=== PATIENT | female | born 1955 | race Caucasian/White ===

== ENCOUNTER → 2019-06-16 12:08 | Outpatient (CLI) | payer OTHER, BC, SELFPAY ==
--- NOTE | 2019-06-16 12:10 | DI.MG.S_ITS ---
BILATERAL DIGITAL SCREENING MAMMOGRAM 3D/2D WITH CAD: 06/16/2019 CLINICAL: Routine screening. Comparison is made to exams dated: 12/16/2017 mammogram, 11/02/2016 mammogram, and 08/26/2012 mammogram - [facility]. The tissue of both breasts is predominantly fatty. Current study was also evaluated with a Computer Aided Detection (CAD) system. There is a 6 mm irregular asymmetry in the left breast anterior depth medial region seen on the craniocaudal view only. This is increased in size. No other significant masses, calcifications, or other findings are seen in either breast. IMPRESSION: INCOMPLETE: NEEDS ADDITIONAL IMAGING EVALUATION The 6 mm irregular asymmetry in the left breast is indeterminate. Additional views with possible ultrasound are recommended. This exam was interpreted at Station ID: [id number]. NOTE: For mammograms, a report in lay terms will be sent to the patient. Approximately 15% of breast malignancies will not be visualized mammographically. In the management of a palpable breast mass, a negative mammogram must not discourage biopsy of a clinically suspicious lesion. Electronically Signed By: Fernanda chinchilla/jhoan:06/16/2019 13:49:56 letter sent: Additional Imaging Needed ACR BI-RADS Category 0: Incomplete 3340F
== END ==
PROVIDERS: PCP Internal Medicine; Visit Provider Obstetrics & Gynecology
DX: Z12.31 Encounter for screening mammogram for malignant neoplasm of breast (principal)
CPT/HCPCS: 77063; 77067

== ENCOUNTER → 2019-06-29 12:24 | Outpatient (CLI) | payer OTHER, BC, SELFPAY ==
--- NOTE | 2019-06-29 12:26 | DI.US.S_ITS ---
LIMITED ULTRASOUND OF LEFT BREAST: 06/29/2019 CLINICAL: Additional evaluation requested from prior study. Comparison is made to exams dated: 06/29/2019 mammogram, 06/16/2019 mammogram, 12/16/2017 mammogram, 11/02/2016 mammogram, 08/26/2012 mammogram, and 08/26/2011 mammogram - [facility]. Color flow and real-time ultrasound of the left breast 7 o'clock region were performed on the areas of interest. There is a 0.5 cm x 0.4 cm x 0.4 cm oval cyst in the left breast at 7 o'clock anterior depth. This oval cyst is hypoechoic with internal echoes and posterior acoustic enhancement. This correlates with mammography findings. Color flow imaging demonstrates that there is no vascularity present. IMPRESSION: PROBABLY BENIGN The 0.5 cm x 0.4 cm x 0.4 cm oval cyst in the left breast is consistent with a complicated cyst and is probably benign. Follow-up mammogram and ultrasound in 6 months is recommended. A follow-up mammogram and an ultrasound in 6 months is recommended to demonstrate stability. This exam was interpreted at Station ID: [id number]. Electronically Signed By: Robin garces/jhoan:06/30/2019 17:58:11 letter sent: Followup Recommended Ultrasound BI-RADS: 3 Probably benign
--- NOTE | 2019-06-29 12:26 | DI.MG.S_ITS ---
UNILATERAL LEFT DIGITAL DIAGNOSTIC MAMMOGRAM 3D/2D WITH ADDITIONAL VIEWS: 06/29/2019 CLINICAL: Additional evaluation requested from prior study. Comparison is made to exams dated: 06/16/2019 mammogram, 12/16/2017 mammogram, and 11/02/2016 mammogram - [facility]. There are scattered fibroglandular elements in left breast. There is a 0.7 cm oval low density focal asymmetry with an indistinct and circumscribed margin in the left breast at 7 o'clock anterior depth. No other significant masses or calcifications are seen in the breast. IMPRESSION: INCOMPLETE: NEEDS ADDITIONAL IMAGING EVALUATION The 0.7 cm oval low density focal asymmetry in the left breast is indeterminate. An ultrasound is recommended. This exam was interpreted at Station ID: [id number]. NOTE: For mammograms, a report in lay terms will be sent to the patient. Approximately 15% of breast malignancies will not be visualized mammographically. In the management of a palpable breast mass, a negative mammogram must not discourage biopsy of a clinically suspicious lesion. Electronically Signed By: Robin garces/jhoan:06/29/2019 13:20:05 ACR BI-RADS Category 0: Incomplete 3340F
== END ==
PROVIDERS: PCP Internal Medicine; Visit Provider Obstetrics & Gynecology
DX: R92.8 Other abnormal and inconclusive findings on diagnostic imaging of breast (principal); N60.02 Solitary cyst of left breast
CPT/HCPCS: 76642; 77065; G0279

== ENCOUNTER → 2019-08-02 16:21 | Outpatient (CLI) | payer OTHER, BC, SELFPAY ==
[2019-08-02 17:22] LABS: Cancer Antigen 125 9 U/mL (0-35)
== END ==
PROVIDERS: Family Provider Internal Medicine; PCP Internal Medicine; Visit Provider Obstetrics & Gynecology
DX: R14.0 Abdominal distension (gaseous) (principal)
CPT/HCPCS: 36415; 86304

== ENCOUNTER → 2020-02-21 12:58 | Outpatient (CLI) | payer OTHER, BC, MEDICARE, SELFPAY | PROVIDERS: Family Provider Internal Medicine; PCP Internal Medicine; Referring Provider Obstetrics & Gynecology; Visit Provider Obstetrics & Gynecology | DX: R92.8 Other abnormal and inconclusive findings on diagnostic imaging of breast (principal); N64.89 Other specified disorders of breast ==

== ENCOUNTER → 2020-02-26 11:08 | Outpatient (CLI) | payer OTHER, BC, MEDICARE, SELFPAY ==
--- NOTE | 2020-02-26 | DI.MG.S_ITS ---
UNILATERAL LEFT DIGITAL DIAGNOSTIC MAMMOGRAM 3D/2D SHORT-TERM FOLLOW-UP: 02/26/2020 CLINICAL: Patient returns for a 6 month follow up of the left breast. Comparison is made to exams dated: 06/29/2019 mammogram, 06/16/2019 mammogram, and 12/16/2017 mammogram - [facility]. There are scattered fibroglandular elements in left breast. There is an oval low density asymmetry with an indistinct margin in the left breast anterior depth medial region seen on the craniocaudal view only. This is not significantly changed. No other significant masses or calcifications are seen in the breast. IMPRESSION: INCOMPLETE: NEEDS ADDITIONAL IMAGING EVALUATION The oval low density asymmetry in the left breast is indeterminate. An ultrasound is recommended. This exam was interpreted at Station ID: [id number]. NOTE: For mammograms, a report in lay terms will be sent to the patient. Approximately 15% of breast malignancies will not be visualized mammographically. In the management of a palpable breast mass, a negative mammogram must not discourage biopsy of a clinically suspicious lesion. Electronically Signed By: Robin garces/jhoan:02/26/2020 11:46:32 ACR BI-RADS Category 0: Incomplete 3340F
--- NOTE | 2020-02-26 | DI.US.S_ITS ---
LIMITED ULTRASOUND OF LEFT BREAST AND AXILLA: 02/26/2020 CLINICAL: 6 month follow-up of cysts. Comparison is made to exams dated: 02/26/2020 mammogram, 06/29/2019 ultrasound, 06/29/2019 mammogram, 06/16/2019 mammogram, 12/16/2017 mammogram, and 11/02/2016 mammogram - [facility]. Color flow and real-time ultrasound of the left breast 7 o'clock, and axilla regions were performed on the areas of interest. There is a 0.3 cm x 0.3 cm x 0.3 cm oval mass with indistinct margins in the left breast at 7 o'clock anterior depth. This oval mass is hypoechoic with posterior acoustic shadowing. This abnormality is more prominent and may correlate with mammography findings. Color flow imaging demonstrates that there is adjacent vascularity. No suspicious enlarged lymph nodes were seen sonographically in the left axilla. IMPRESSION: SUSPICIOUS OF MALIGNANCY The 0.3 cm x 0.3 cm x 0.3 cm oval mass in the left breast is suspicious of malignancy. An ultrasound guided biopsy is recommended. The findings were discussed with the patient at the conclusion of the study by Dr. De La O. This exam was interpreted at Station ID: [id number]. Electronically Signed By: Robin garces/:02/26/2020 16:10:58 letter sent: Biopsy Required Ultrasound BI-RADS: 4 Suspicious for malignancy
== END ==
PROVIDERS: Family Provider Internal Medicine; PCP Internal Medicine; Referring Provider Obstetrics & Gynecology; Visit Provider Obstetrics & Gynecology
DX: R92.8 Other abnormal and inconclusive findings on diagnostic imaging of breast (principal); N63.24 Unspecified lump in the left breast, lower inner quadrant
CPT/HCPCS: 76642; 77065; G0279

== ENCOUNTER → 2020-03-15 08:57 | Outpatient (CLI) | payer OTHER, BC, MEDICARE, SELFPAY ==
--- NOTE | 2020-03-15 | DI.MG.S_ITS ---
UNILATERAL LEFT DIGITAL DIAGNOSTIC MAMMOGRAM POST-NEEDLE BIOPSY: 03/15/2020 CLINICAL: Left breast mass. Comparison is made to exams dated: 06/29/2019 mammogram, 06/16/2019 mammogram, and 12/16/2017 mammogram - [facility]. There are scattered fibroglandular elements in left breast. There is a marker clip in the appropriate position in the left breast at 7 o'clock anterior depth. This marker clip placement is at the biopsy site. IMPRESSION: POST PROCEDURE MAMMOGRAM FOR MARKER PLACEMENT There was a successful marker clip placement in the left breast anterior depth. This exam was interpreted at Station ID: [id number]. NOTE: For mammograms, a report in lay terms will be sent to the patient. Approximately 15% of breast malignancies will not be visualized mammographically. In the management of a palpable breast mass, a negative mammogram must not discourage biopsy of a clinically suspicious lesion. Electronically Signed By: Bay escalante/:03/15/2020 14:07:00 ACR BI-RADS Category Post-procedure mammogram for marker placement
--- NOTE | 2020-03-15 | PATH_ITS ---
[facility] Accession Number: [id number] . 01 Material submitted: . breast - LEFT BREAST MASS 7:00 2 CM FN . 01 Clinical history: . LEFT BREAST MASS . 02 Diagnosis: Left Breast, Mass At 7 O'Clock, 2 CM FN, Core Needle Biopsy: No evidence of atypical hyperplasia, in-situ, or invasive carcinoma. Dense fibrous tissue with duct ectasia. Hemosiderin-laden macrophages present suggestive of prior/remote injury. [facility] 03/19/2020 1507 Local . 02 Electronically signed: . Rita Francisco MD, Pathologist NPI- [id number] . 01 Gross description: . Received in formalin, labeled with the patient's name and left breast mass 7 o'clock 2 cm FN, is a filter container with five cores of yellow-delong, fibrofatty breast tissue, 0.5-1.5 cm in length, 0.3 cm in diameter, with a 1.5 x 1.0 x 0.2 cm aggregate of multiple irregular fragments of fibrofatty tissue in the container. The specimen is entirely submitted. Summary of sections: A1. Three cores. A2. Two cores. A3. Remaining aggregate fragments. Please note that no formalin time is indicated on the requisition or container. ([id number]) /FRTj 03/16/2020 1437 Local . 02 Pathologist provided ICD-10: N63.0 . 02 CPT . 994631 Performed at: 01 [facility] [address] [facility], [place], [place] [id number] MD Robin Wall MD Phone: [phone] Performed at: 02 [facility] [place] [address] [place] [id number] MD Rita Francisco MD Phone: [phone]
--- NOTE | 2020-03-15 09:00 | DI.US.S_ITS ---
ULTRASOUND GUIDED BIOPSY LEFT BREAST USING VACUUM DEVICE WITH MARKING DEVICE INSERTED: 03/15/2020 CLINICAL: Left breast mass. PATIENT CONSENT: Risks (minor bleeding, infection, vasovagal reaction and repeat procedure), benefits and alternatives were explained to the patient and written informed consent was obtained. Correlation is made to exams dated: 02/26/2020 ultrasound, 02/26/2020 mammogram, 06/29/2019 ultrasound, 06/29/2019 mammogram, 06/16/2019 mammogram, and 12/16/2017 mammogram - [facility]. An ultrasound guided biopsy using real-time ultrasound was performed for the irregular shaped mass located in the left breast at 7 o'clock .The skin was prepped in the usual manner. Local anesthetic was administered to the access site. A small incision was made in the breast. The abnormality was approached from the lateral aspect. A biopsy needle was placed adjacent to the abnormality under ultrasound guidance. Once the needle was documented to be in the correct location, three specimens were obtained using the Mammotome biopsy system. A clip was inserted into the biopsy cavity. The specimens were sent to the laboratory for pathological analysis. IMPRESSION: ULTRASOUND GUIDED BIOPSY BENIGN Ultrasound guided biopsy of the mass in the left breast at 7 o'clock posterior depth was successful. Pathology indicates dense breast tissue with benign ductal ectasia and hemosiderin laden macrophages consistent with prior/remote trauma. Pathology results are concordant with imaging findings. Return to annual mammogram screening schedule is recommended. This exam was interpreted at Station ID: [id number]. Bay escalante,aty/:03/21/2020 10:00:56
== END ==
PROVIDERS: Family Provider Internal Medicine; PCP Internal Medicine; Referring Provider Specialist; Visit Provider Specialist
DX: N60.42 Mammary duct ectasia of left breast (principal); N64.89 Other specified disorders of breast
CPT/HCPCS: 19083; 77065

== ENCOUNTER → 2020-09-18 12:23 | Outpatient (CLI) | payer OTHER, BC, MEDICARE, SELFPAY ==
--- NOTE | 2020-09-18 | DI.MG.S_ITS ---
BILATERAL DIGITAL SCREENING MAMMOGRAM 3D/2D WITH CAD: 09/18/2020 CLINICAL: Routine screening. Comparison is made to exams dated: 03/15/2020 mammogram, 02/26/2020 mammogram, 06/29/2019 mammogram, 06/16/2019 mammogram, and 12/16/2017 mammogram - [facility]. There are scattered fibroglandular elements in both breasts. Current study was also evaluated with a Computer Aided Detection (CAD) system. No significant masses, calcifications, or other findings are seen in either breast. There has been no significant interval change. IMPRESSION: NEGATIVE There is no mammographic evidence of malignancy. A 1 year screening mammogram is recommended. This exam was interpreted at Station ID: [id number]. NOTE: For mammograms, a report in lay terms will be sent to the patient. Approximately 15% of breast malignancies will not be visualized mammographically. In the management of a palpable breast mass, a negative mammogram must not discourage biopsy of a clinically suspicious lesion. Electronically Signed By: Marcus Little M.D., jr/jhoan:09/18/2020 13:06:07 letter sent: Normal Exam ACR BI-RADS Category 1: Negative 3341F
== END ==
PROVIDERS: Family Provider Internal Medicine; PCP Internal Medicine; Referring Provider Obstetrics & Gynecology; Visit Provider Obstetrics & Gynecology
DX: Z12.31 Encounter for screening mammogram for malignant neoplasm of breast (principal)
CPT/HCPCS: 77063; 77067

== ENCOUNTER → 2020-10-29 14:29 | Outpatient (CLI) | payer OTHER, BC, MEDICARE, SELFPAY ==
[2020-10-29 15:27] LABS: HEMOLYSIS < 15 (0-50); Iron 124 ug/dL (37-170)
[2020-10-29 15:29] LABS: Alanine Aminotransferase 18 IU/L (<35); Albumin 4.4 g/dL (3.5-5.0); Albumin Globulin Ratio 1.5 (1.0-2.8); Alkaline Phosphatase 54 U/L (38-126); Aspartate Aminotransferase 27 IU/L (14-36); Bilirubin Total 0.6 mg/dL (0.2-1.3); Blood Urea Nitrogen 13 mg/dL (7-17); Calcium 9.5 mg/dL (8.4-10.2); Carbon Dioxide 29 mmol/L (22-32); Chloride 103 mmol/L (98-107); Cholesterol 258 mg/dL (140-199); Estimated Glomerular Filt Rate > 60.0 mL/min (>60); Globulin 2.9 g/dL (1.7-4.1); Glucose 96 mg/dL (80-110); HDL Cholesterol 82 mg/dL (40-60); HEMOLYSIS < 15 (0-50); LDL Cholesterol Calculated 157 mg/dL (<100); Potassium 4.1 mmol/L (3.4-5.1); Sodium 137 mmol/L (137-145); Total Protein 7.3 g/dL (6.3-8.2); Triglycerides 94 mg/dL (35-150)
[2020-10-29 15:44] LABS: Percent Iron Saturation 40 % (15-50); Total Iron Binding Capacity 308 ug/dL (265-497); Transferrin 238 mg/dL (206-381)
[2020-10-29 15:45] LABS: Free T4, Direct Thyroxine 0.86 ng/dL (0.78-2.19)
[2020-10-29 15:59] LABS: Thyroid Stimulating Hormone 0.602 uIU/mL (0.47-4.68)
[2020-11-02 08:08] LABS: Percent Free Testosterone 2.09 % (0.50-2.80); Testosterone Free 0.54 ng/dL (0.10-0.85)
== END ==
PROVIDERS: Family Provider Internal Medicine; PCP Internal Medicine; Referring Provider Obstetrics & Gynecology; Visit Provider Obstetrics & Gynecology
DX: L65.9 Nonscarring hair loss, unspecified (principal)
CPT/HCPCS: 36415; 80053; 80061; 83540; 83550; 84402; 84403; 84439; 84443

== ENCOUNTER → 2021-07-30 10:38 | Outpatient (CLI) | payer BC, MEDICARE, SELFPAY ==
[2021-07-30 17:14] LABS: COVID19 -Nasal RAPID Negative (Negative)
== END ==
PROVIDERS: Family Provider Internal Medicine; PCP Internal Medicine; Visit Provider Obstetrics & Gynecology
DX: Z20.822 Contact with and (suspected) exposure to COVID-19 (principal); Z01.812 Encounter for preprocedural laboratory examination
CPT/HCPCS: 87635; C9803

== ENCOUNTER 2021-07-31 08:16 | Day surgery (SDC) | payer BC, MEDICARE, SELFPAY ==
[2021-07-23 10:13] VITALS: BMI 24.4
[2021-07-31] VITALS (7 sets, daily range): BP systolic 109–159; BP diastolic 41–77; PULSE 66–77; RESP 12–18; TEMP 36.1–36.5; O2SAT 98–100; BMI 24.4
--- NOTE | 2021-07-31 | PATH_ITS ---
[facility] Accession Number: [id number] . 01 Material submitted: . endometrium - ENDOMETRIAL CURETTINGS . 02 Diagnosis: Endometrial Curettings: Very scant fragments of endometrial tissue and scant strips of endometrial glandular epithelium; please see comment. Scant, avulsed squames with reactive features; negative for squamous dysplasia or malignancy. [facility]V 08/04/2021 0933 Local . 02 Comment: Due to the scant nature of this biopsy, it may not be entirely fundraising sale representative of this patient's endometrium; additional sampling could be considered, if clinically appropriate. . There is no evidence of glandular hyperplasia, cytologic atypia, or malignancy in these very scant tissue fragments. . 02 Electronically signed: . Spring Archibald MD, Pathologist NPI- [id number] . 01 Gross description: . ENDOMETRIAL CURETTINGS: Received in formalin is 1 fragment(s) of delong, soft tissue measuring 0.3 x 0.1 x 0.1 cm in aggregate submitted entirely in 1 cassette(s) /ASCENCION 08/01/2021 0341 Local . 02 Pathologist provided ICD-10: N95.0 . 02 CPT . 866290 Performed at: 01 [facility] [address], [place], [place] [id number] MD Robin Wall MD Phone: [phone] Performed at: 02 [facility] [place] [address] [place], [place] [id number] MD Rita Francisco MD Phone: [phone]
[2021-07-31] MEDS: LACTATED RINGERS 1,000 ML 100 ML IV (09:41)
--- NOTE | 2021-07-31 10:22 | PM.HP.1 ---
History of Present Illness History of Present Illness Date Patient Seen: 07/31/21 Time Patient Seen: 10:23 Chief complaint: SDC Narrative: Patient is a 66-year-old 1 para 1 with persistent postmenopausal bleeding. She presents for a D&C hysteroscopy with NovaSure endometrial ablation. Negative endometrial biopsy. Patient History Medical History (Updated 07/24/21 @ 08:48 by Asiya Mendosa MD) Depression Former smoker History of endometrial biopsy (2010) Migraines Osteopenia (06/05/10) PMB (postmenopausal bleeding) Seizure Subdural hematoma (05/27/17) Surgical History (Updated 06/20/18 @ 13:18 by Kristi Nicole) History of carpal tunnel repair (03/07/12) History of craniotomy (2016) Family & Social History Social History: household members spouse Tobacco & Substance use: Smoking Status Former smoker alcohol intake current alcohol intake frequency holiday/special occasion Substance Use Type does not use Meds Home Medications and Allergies Home Medications Medication Instructions Recorded Confirmed Type VITAMIN B COMPLEX (SUPER B COMPLEX) 1 cap PO DAILY #0 03/07/12 07/31/21 History diphenhydramine HCl 25 mg tablet 25 mg PO PRN PRN #0 11/03/16 07/31/21 History (Benadryl Allergy) ascorbic acid (vitamin C) 500 mg 500 mg PO QDAY #0 06/09/17 07/31/21 History tablet albuterol sulfate 90 mcg/actuation 1 puff INHALATION QID #1 ea 02/07/19 07/31/21 Rx aerosol inhaler (Ventolin HFA) estradiol 1 mg tablet 1 mg PO DAILY #30 tab 02/10/21 07/31/21 Rx medroxyprogesterone 5 mg tablet See Rx Instructions .ROUTE 02/10/21 07/31/21 Rx .COMPLEX #90 tab sertraline 25 mg tablet 25 mg PO DAILY #30 tab 02/10/21 07/31/21 Rx CMP Testosterone gel 0.2% See Rx Instructions .ROUTE 06/26/21 07/31/21 Rx .COMPLEX #30 g Allergies Allergy/AdvReac Type Severity Reaction Status Date / Time codeine Allergy Unknown Verified 07/31/21 09:23 fentanyl [FENTANYL] Allergy Unknown Hallucinati Verified 07/31/21 09:23 ons Exam Vital Signs (past 8 hours): - 07/31/21 09:32 Temperature 96.9 F L Pulse Rate 69 Respiratory Rate 16 Blood Pressure 159/77 H Pulse Oximetry 100 Oxygen Delivery Method Room Air Narrative Exam Narrative: HEENT: No thyromegaly, no anterior cervical or supraclavicular lymphadenopathy. Lungs:Clear to auscultation bilaterally, no wheezes. Cardiovascular: Regular rate and rhythm, no murmurs, rubs, or gallops. Abdomen: No scars. No hepatosplenomegaly. No masses palpable. External genitalia: Normal Vagina: Normal Cervix: Normal Bimanual exam: 6 Week size anteverted uterus. Mobile. Assessment & Plan Assessment & Plan narrative: Assessment: 66-year-old 1 para 1 with persistent postmenopausal bleeding, and a negative endometrial biopsy. Plan: D&C hysteroscopy with NovaSure endometrial ablation. The risks, benefits, and alternatives to the procedure were explained to the patient. The risks including bleeding, infection, or uterine perforation. She understands these risks and agrees to proceed. A full par Q was held and consent form was signed. COVID-19 COVID-19 status: Negative Result date/Date tested (Pos, Neg/Pending): 07/30/21 Time Spent With Patient Time with patient: less than 30 minutes Critical Care time: I spent a total of [] minutes of critical care time on this patient's care today; this time is exclusive of procedural time.
--- NOTE | 2021-07-31 10:25 | PM.PREOP ---
Pre-operative Note COVID-19 COVID-19 status: Negative Result date/Date tested (Pos, Neg/Pending): 07/30/21 Interval Note History & Physical reviewed/Exam performed by Physician: Yes Changes to H&P: No H&P completed within 30 days and has changed as indicated here:: 07/31/21
--- NOTE | 2021-07-31 10:54 | SUR.OPER ---
Lithotomy on padded OR bed, head on pillow, arms secured on padded arm boards at <90 degrees abduction. Legs secured in padded yellow fins stirrups.
--- NOTE | 2021-07-31 11:26 | PM.GYNOP.1 ---
Operative Date/Time/Diagnoses Date of procedure: 07/31/21 Time of procedure: 11:26 Pre-op diagnosis: Persistent postmenopausal bleeding Post-op diagnosis: same Procedure & Clinicians Procedure: Procedures Operation Date: 07/31/21 09:45 Actual Procedure Side Surgeon p Hysteroscopy D&C, ATTEMPTED NOVASURE, ENDOMETRIAL ABLATION WITH ROLLERBALL Not Applicable Asiya Mendosa MD Indications: Persistent postmenopausal bleeding Surgeon: Asiya Mendosa Anesthesia Type: General (LMA) Operative Notes Findings: 4-5 week size anteverted uterus Both fallopian tube ostia observed Thin endometrial lining Closure Type: not applicable Specimen(s): endometrial curettings Estimated blood loss (mL): 2 Blood products transfused: none Procedure in detail: After informed consent was obtained, the patient was taken to the operating room where she was placed in the dorsal supine position. After adequate LMA general anesthesia was achieved, she was placed in the dorsal lithotomy position, and prepped and draped in the usual sterile fashion. A time-out was performed. A bivalve speculum was placed into the vagina and the anterior lip of the cervix was grasped with a single-tooth tenaculum. The cervical os was sequentially dilated to the # 8 Hegar dilator. The hysteroscope passed easily into the endometrial cavity. Both fallopian tube ostia were observed. There was thin endometrial lining. The hysteroscope was removed. Sharp curettage was performed yielding minimal amount of endometrial curettings. The cervix was measured from the internal os to the fundus and was at 4 cm. This was set on the NovaSure catheter and the generator. The NovaSure catheter passed into the endometrial cavity. Upon opening it was only 1.5 cm. The cavity assessment could not be performed due to low volume inside the uterus. The NovaSure catheter was closed and removed from the uterus. The cervix was further dilated to the # 10 Hegar dilator. The resectoscope was placed into the endometrial cavity. Rollerball endometrial ablation was performed with settings at 60 cautery. The endometrium was cauterized circumferentially at the completion of the case. The instruments were removed from the uterus. The single-tooth tenaculum was removed from the anterior lip of the cervix. There was a small tear in the anterior cervix. A [id number] suture with 2 0 chromic was placed for hemostasis. Sponge, lap, and instrument counts were correct x2. The patient tolerated the procedure well, and was taken to PACU in stable condition. Complications: none Post-operative Condition: stable Disposition: PACU Plan for aftercare: Home after recovery
[2021-07-31] MEDS: ACETAMINOPHEN 325 MG TABLET 650 MG PO (11:33)
== END 2021-07-31 12:20 | disposition home or self-care (01) ==
PROVIDERS: Family Provider Internal Medicine; PCP Internal Medicine; Referring Provider Obstetrics & Gynecology; Visit Provider Obstetrics & Gynecology
PROC: 0U5B8ZZ Destruction of Endometrium, Via Natural or Artificial Opening Endoscopic (ICD-10-PCS; CPT 58563; principal; 2021-07-31 09:45)
DX: N95.0 Postmenopausal bleeding (principal); F32.9 Major depressive disorder, single episode, unspecified; G43.909 Migraine, unspecified, not intractable, without status migrainosus; M85.80 Other specified disorders of bone density and structure, unspecified site
CPT/HCPCS: 58563; J1100; J1885; J2405; J2704; J3010

== ENCOUNTER → 2021-09-22 11:24 | Outpatient (CLI) | payer BC, MEDICARE, SELFPAY ==
--- NOTE | 2021-09-22 11:27 | DI.MG.S_ITS ---
BILATERAL DIGITAL SCREENING MAMMOGRAM 3D/2D WITH CAD: 09/22/2021 Comparison is made to exams dated: 09/18/2020 mammogram, 03/15/2020 mammogram, 06/29/2019 mammogram, 06/16/2019 mammogram, 08/26/2011 mammogram, and 08/26/2012 mammogram - [facility]. There are scattered fibroglandular elements in both breasts. Current study was also evaluated with a Computer Aided Detection (CAD) system. There is a biopsy clip in the left breast. No significant masses, calcifications, or other findings are seen in either breast. There has been no significant interval change. IMPRESSION: NEGATIVE There is no mammographic evidence of malignancy. A 1 year screening mammogram is recommended. This exam was interpreted at Station ID: [id number]. NOTE: For mammograms, a report in lay terms will be sent to the patient. Approximately 15% of breast malignancies will not be visualized mammographically. In the management of a palpable breast mass, a negative mammogram must not discourage biopsy of a clinically suspicious lesion. Electronically Signed By: Robin garces/jhoan:09/22/2021 12:16:53 letter sent: Normal Exam ACR BI-RADS Category 1: Negative [id number]
== END ==
PROVIDERS: Family Provider Internal Medicine; PCP Internal Medicine; Referring Provider Internal Medicine; Visit Provider Internal Medicine
DX: Z12.31 Encounter for screening mammogram for malignant neoplasm of breast (principal)
CPT/HCPCS: 77063; 77067

== ENCOUNTER 2021-11-11 21:38 | Emergency (ER) | payer BC, MEDICARE, SELFPAY ==
[2021-11-11 21:42] VITALS: BP 191/90; PULSE 76; RESP 16; TEMP 36.6; O2SAT 100
--- NOTE | 2021-11-11 22:04 | DI.RAD.S_ITS ---
PROCEDURE: XR CHEST 2V INDICATIONS: bilateral rib pain TECHNIQUE: 2 views of the chest were acquired. COMPARISON: [facility], , CHEST 1 VIEW, 05/27/2017, 15:45. FINDINGS: Surgical changes and devices: None. Lungs and pleura: Lungs are clear. No pleural effusions or pneumothorax. Mediastinum: Mediastinal contours are normal. Heart size is normal. Bones and chest wall: No suspicious bony abnormalities. Soft tissues appear unremarkable. IMPRESSION: No acute cardiopulmonary pathology. Dictated by: Rudolph Salguero M.D. on 11/11/2021 at 22:22 Approved by: Rudolph Salguero M.D. on 11/11/2021 at 22:22
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
--- NOTE | 2021-11-11 22:04 | DI.CT.S_ITS ---
PROCEDURE: CT HEAD/BRAIN WO CON INDICATIONS: fall , prior bleed TECHNIQUE: Noncontrast 4.5 mm thick angled axial sections acquired from the foramen magnum to the vertex, with coronal and sagittal reformats. For radiation dose reduction, the following was used: automated exposure control, adjustment of mA and/or kV according to patient size. COMPARISON: [facility], CT, HEAD WITHOUT CONTRAST, 07/20/2017, 12:26. FINDINGS: Image quality: Excellent. CSF spaces: Basal cisterns are patent. No extra-axial fluid collections. The ventricles are symmetric in size and shape. Brain: No acute intracranial bleeds or masses. Previously described trace amount of extra-axial fluid collection in right frontal lobe deep to the craniotomy site remains unchanged and is suggestive of a chronic process. There is cerebral volume loss for age, with resultant ventricular and sulcal prominence. There are periventricular and deep white matter chronic small vessel ischemic changes. There is intracranial internal carotid artery atherosclerosis. Skull and face: Prior right frontal parietal craniotomy is again seen. Calvarium and visualized facial bones appear intact, without suspicious lesions. Sinuses: Visualized sinuses and mastoids are clear. IMPRESSION: No significant changes from [address] evidence of acute intracranial bleed, midline shift or mass effect. Stable right frontal parietal craniotomy changes. Stable trace amount of extra-axial fluid in right frontal lobe deep to craniotomy site. Dictated by: Rudolph Salguero M.D. on 11/11/2021 at 22:30 Approved by: Rudolph Salguero M.D. on 11/11/2021 at 22:32
--- NOTE | 2021-11-11 22:04 | DI.CT.S_ITS ---
PROCEDURE: CT FACIAL BONES WO CON INDICATIONS: jaw problem.fall TECHNIQUE: Noncontrast 2.5 mm thick axial images acquired from the mandible through the frontal sinuses, with coronal and sagittal reformatting. For radiation dose reduction, the following was used: automated exposure control, adjustment of mA and/or kV according to patient size. COMPARISON: [facility], CT, FACIAL BONES WITHOUT CONTRAST, 05/27/2017, 15:58. FINDINGS: Image quality: Excellent. Bones and teeth: Orbital pan are intact. Sinus pan show no fracture or deformity. Nasal bones and septum are intact. Visualized portions of the mandible demonstrate no fractures or subluxation. Zygomatic arches are intact. Pterygoid plates are intact. Visualized portions of the skull base and auditory canals are intact. Sinuses: Paranasal sinuses are aerated, without fluid levels, mucosal thickening, or mucoceles. Mastoid air cells are aerated. Soft tissues: No edema, masses, or fluid collections. No enlarged lymph nodes. No soft tissue lacerations or debris. Vascular: Visualized vascular structures appear normal in the absence of contrast. Bony vascular foramina and canals are intact. IMPRESSION: 1. No acute facial bone or nasal bone fracture. Bilateral orbital pan and orbital globes are intact. 2. No gross facial soft tissue abnormality. Bilateral paranasal sinuses are well aerated. Dictated by: Rudolph Salguero M.D. on 11/11/2021 at 22:39 Approved by: Rudolph Salguero M.D. on 11/11/2021 at 22:41
[2021-11-11] MEDS: ACETAMINOPHEN 325 MG TABLET 975 MG PO (22:31)
[2021-11-11 23:15] VITALS: BP 162/77; PULSE 78; RESP 16; O2SAT 99
== END 2021-11-11 23:15 | disposition home or self-care (01) ==
PROVIDERS: Emergency Provider Emergency Medicine; Family Provider Internal Medicine; PCP Internal Medicine
DX: S09.90XA Unspecified injury of head, initial encounter (principal); Z87.891 Personal history of nicotine dependence; S20.219A Contusion of unspecified front wall of thorax, initial encounter; W19.XXXA Unspecified fall, initial encounter; Y93.89 Activity, other specified; Y92.89 Other specified places as the place of occurrence of the external cause
CPT/HCPCS: 70450; 70486; 71046; 99284

== ENCOUNTER → 2022-06-04 11:57 | Outpatient (CLI) | payer BC, MEDICARE, SELFPAY ==
[2022-06-04 13:23] LABS: Add Manual Diff / Slide Review NO; Basophils Absolute Auto 0 /uL (0-100); Basophils Percent Auto 0.3 % (0-2); Eosinophils Absolute Auto 0 /uL (0-450); Eosinophils Percent Auto 0.2 % (2-4); Hematocrit 38.6 % (36-46); Hemoglobin 13.3 g/dL (12.0-16.0); Lymphocytes Absolute Auto 1200 /uL (1100-4500); Lymphocytes Percent Auto 22.5 % (25-40); Mean Corpuscular HGB Conc 34.5 % (30-36); Mean Corpuscular Volume 98.3 fL (80-100); Monocytes Absolute Auto 300 /uL (0-900); Monocytes Percent Auto 6.1 % (3-14); Neutrophils Absolute Auto 3900 /uL (1500-7000); Neutrophils Percent Auto 70.9 % (50-75); Platelet Count 262 X10^3/uL (150-400); Red Blood Cell Count 3.93 X10^6/uL (4.0-5.2); Red Cell Distribution Width 13.3 % (11.6-14.8); White Blood Cell Count 5.5 X10^3/uL (4.5-11.0)
[2022-06-04 13:43] LABS: Alanine Aminotransferase 20 IU/L (<35); Albumin 4.4 g/dL (3.5-5.0); Albumin Globulin Ratio 1.6 (1.0-2.8); Alkaline Phosphatase 56 U/L (38-126); Aspartate Aminotransferase 27 IU/L (14-36); Bilirubin Total 0.5 mg/dL (0.2-1.3); Blood Urea Nitrogen 14 mg/dL (7-17); Carbon Dioxide 29 mmol/L (22-32); Chloride 103 mmol/L (98-107); Estimated Glomerular Filt Rate > 60 mL/min (>60); Globulin 2.8 g/dL (1.7-4.1); Glucose 94 mg/dL (80-110); HEMOLYSIS < 15 (0-50); Potassium 4.2 mmol/L (3.4-5.1); Sodium 137 mmol/L (137-145); Total Protein 7.2 g/dL (6.3-8.2)
[2022-06-04 15:28] LABS: Free T4, Direct Thyroxine 0.89 ng/dL (0.78-2.19)
[2022-06-04 15:42] LABS: Thyroid Stimulating Hormone 2.27 uIU/mL (0.47-4.68)
== END ==
PROVIDERS: Family Provider Internal Medicine; PCP Internal Medicine; Referring Provider Internal Medicine; Visit Provider Internal Medicine
DX: N95.1 Menopausal and female climacteric states (principal); R13.10 Dysphagia, unspecified; R63.4 Abnormal weight loss
CPT/HCPCS: 36415; 80053; 84439; 84443; 85025

== ENCOUNTER → 2023-05-04 09:36 | Outpatient (CLI) | payer BC, MEDICARE, SELFPAY ==
[2023-05-04 11:07] LABS: Alanine Aminotransferase 19 IU/L (<35); Albumin 4.1 g/dL (3.5-5.0); Albumin Globulin Ratio 1.5 (1.0-2.8); Alkaline Phosphatase 58 U/L (38-126); Aspartate Aminotransferase 24 IU/L (14-36); BUN Creatinine Ratio 21.9 (6-22); Bilirubin Total 0.7 mg/dL (0.2-1.3); Blood Urea Nitrogen 14 mg/dL (7-17); Calcium 9.2 mg/dL (8.4-10.2); Carbon Dioxide 29 mmol/L (22-32); Chloride 102 mmol/L (98-107); Cholesterol 223 mg/dL (140-199); Estimated Glomerular Filt Rate > 60 mL/min (>60); Globulin 2.7 g/dL (1.7-4.1); Glucose 99 mg/dL (80-110); HDL Cholesterol 86 mg/dL (40-60); HEMOLYSIS < 15 (0-50); LDL Cholesterol Calculated 116 mg/dL (<100); Potassium 4.7 mmol/L (3.4-5.1); Sodium 136 mmol/L (137-145); Total Protein 6.8 g/dL (6.3-8.2); Triglycerides 104 mg/dL (35-150)
== END ==
PROVIDERS: Family Provider Internal Medicine; PCP Internal Medicine; Referring Provider Internal Medicine; Visit Provider Internal Medicine
DX: Z13.6 Encounter for screening for cardiovascular disorders (principal); Z13.220 Encounter for screening for lipoid disorders
CPT/HCPCS: 36415; 80053; 80061

== ENCOUNTER → 2023-05-10 08:33 | Outpatient (CLI) | payer BC, MEDICARE, SELFPAY ==
--- NOTE | 2023-05-10 08:35 | DI.US.S_ITS ---
PROCEDURE: US CAROTID DOPPLER BI INDICATIONS: CALCIFICATION ON DENTAL X-RAY TECHNIQUE: Color and pulse Doppler interrogation was performed of both carotid systems, with image documentation and velocity measurements. COMPARISON: None. FINDINGS: Stenosis calculations are based on SRU (Society of Radiologists in Ultrasound) criteria. The flow velocities and the arterial waveforms are normal within both carotid arterial systems. Atherosclerotic plaque is seen on both sides. The estimated degree of internal carotid artery stenosis is less than 50%. Antegrade flow is confirmed within both vertebral arteries. IMPRESSION: No hemodynamically significant stenosis is seen. Atherosclerotic plaque is noted bilaterally. Dictated by: Rayshawn Figueroa M.D. on 05/10/2023 at 12:35 Approved by: Rayshawn Figueroa M.D. on 05/10/2023 at 12:35
== END ==
PROVIDERS: Family Provider Internal Medicine; PCP Internal Medicine; Referring Provider Internal Medicine; Visit Provider Internal Medicine
DX: I65.23 Occlusion and stenosis of bilateral carotid arteries (principal)
CPT/HCPCS: 93880

== ENCOUNTER 2024-09-19 11:30 | Outpatient (RCR) | payer BC, MEDICARE, SELFPAY ==
--- NOTE | 2024-06-20 16:00 | PT.OIE ---
Current Diagnoses Cystocele, unspecified (06/20/24) Pelvic muscle wasting (06/20/24) Nocturia (06/20/24) Urgency of urination (06/20/24) Past Medical History (Last Updated 02/18/24 @ 15:41 by Sj Gomez MD) Depression Former smoker History of endometrial biopsy (2010) Migraines Osteopenia (06/05/10) PMB (postmenopausal bleeding) Seizure Subdural hematoma (05/27/17) Past Surgical History (Last Reviewed 11/11/21 @ 22:17 by Courtney Morales DO) History of carpal tunnel repair (03/07/12) History of craniotomy (2017) Visit Care Team Role Provider Type Sj Gomez MD Family Provider Physician Primary Care Provider Specialty: Internal Medicine Address: [address] [place] [address], [address] [address] Email: [email or web address] Asiya Mendosa MD Attending Provider Physician Referring Provider Specialty: Gynecology DISTRIBUTION SPECIALIST Obstetrics Address: [address] [place] [address] [address] [place] [address], [facility] Email: [email or web address] Physical Therapy Initial Evaluation PT-OP-A Visit Information Start: 06/20/24 13:47 Freq: Status: Active Protocol: Document 06/20/24 17:06 [facility] (Rec: 06/20/24 17:08 [facility] [id number]) Out-Patient Physical Therapy Visit Information Visit Information Visit Type Initial Evaluation Visit Start Time 13:45 Visit Stop Time 14:30 Visit Number 1 Evaluation Information Evaluation Date 06/20/24 PT-OP-B Current Condition Start: 06/20/24 13:47 Freq: Status: Active Protocol: Document 06/20/24 13:45 [facility] (Rec: 06/20/24 14:38 [facility] [id number]) Current Condition History of Current Condition Onset Date worsening in the past couple of years Current Complaints pelvic heaviness and pressure, urinary urgency History of Current Condition Dannielle is referred to PT due to pelvic organ prolapse and urinary urgency. She notes the last couple of years its gotten worse she has a history of cystocele, uterine prolapse, and rectocele. She feels that she can empty all the way but does have urgency and she drinks a lot of water. Dannielle reports she can go 3- 4 days without a bowel movement. She is taking progesterone , estrogen, and testosterone cream. She does cycle throught the testosterone cream. She is walking daily. She seeks PT to help decrease the pelvic organ prolapse and pelvic heaviness as well as decrease her urgency Treatment Goals Patient/Caregiver Goals Decrease urinary urgency and symptoms of pelvic organ prolapse PT-OP-C Subjective Start: 06/20/24 13:47 Freq: Status: Active Protocol: Document 06/20/24 13:45 [facility] (Rec: 06/29/24 09:59 [facility] [id number]) Patient Questionnaires Pelvic Pain and Urgency/Frequency Patient Symptom Scale Pelvic Pain Score 13 PT-OP-F Manual Assessment Start: 06/20/24 13:47 Freq: Status: Active Protocol: Document 06/20/24 13:45 [facility] (Rec: 06/29/24 10:23 [facility] [id number]) Manual Assessments Soft Tissue Assessment Soft Tissue Mobility Assessment fascial tightness across the transverse and descending colon in the abdominal wall, decreased diaphragmatic excursion tightness of the suprapubic fascia and over the bladder PT-OP-I Pelvic Floor Start: 06/20/24 13:47 Freq: Status: Active Protocol: Document 06/20/24 13:45 [facility] (Rec: 06/29/24 09:59 [facility] [id number]) Pelvic Floor Assessment Urine Pelvic Floor Surgery No Urinary Symptoms Urge Sensation,Prolapse Other Urinary Symptoms nocturia 3 times per night and 11-14 times per day Leakage Size Medium Other Leakage Causes leakage with strong cough or sneeze or with a strong urge to void Bowel Bowel Symptoms Constipation Other Bowel Symptoms history of constipation, at times up to 6 days without a bowel movement, often finds she needs to strain to have a bowel movement Comments Pelvic Floor Comments decreased endurance for sustained pelvic floor contractions, pt needs further assessment for pelvic floor strength PT-OP-Q Treatments Start: 06/20/24 13:47 Freq: Status: Active Protocol: Document 06/20/24 17:06 [facility] (Rec: 06/20/24 17:08 [facility] [id number]) Therapeutic Exercises Supine Exercises pelvic floor long holds Reps/Minutes 5-10 second holds with 10 second relax Self-Care/Home Management Treatment Education Patient Education Home Exercise Program Other Education Dannielle was educated on the ILU self massage to help stimulate bowel movements, she was educated on using the squatt potty as her feet do not touch the floor when toileting, and ideas to increase fiber to promote more frequent bowel movements were reviewed PT-OP-T Assessment and Plan Start: 06/20/24 13:47 Freq: Status: Active Protocol: Document 06/20/24 13:45 [facility] (Rec: 06/29/24 10:00 [facility] [id number]) Physical Therapy Assessment Rehab Potential Rehabilitation Potential Excellent Evaluation Complexity Number of Personal Factors/Comorbidities 0 Number of Body Systems Impaired 1-2 Clinical Presentation at Evaluation Stable Impairments Impairments Activity Tolerance,Pain,Soft Tissue Mobility,Strength Other Impairments pelvic organ prolapse and constipation issues Goals 3 Impairment Decreased endurance of the pelvic floor Short Term Goal (STG) dannielle is able to sustain a pelvic floor contraction in supine x 10 seconds STG Duration 4 weeks Mcc Goal (LTG) Dannielle is able to sustain a pelvic floor contraction in standing x 5 seconds LTG Duration 12 weeks 2 Impairment Pelvic pressure and heaviness with pelvic organ prolapse Spindle Sander Goal (LTG) Dannielle reports a overall reduction in pelvic heaviness and pressure LTG Duration 12 weeks 1 Impairment urinary urgency and frequency with pt voiding 11-14 times per day and up to 3 times per night Short Term Goal (STG) Dannielle is educated in improved bowel habits to help decrease urinary urgency, the urge deference technique and bladder retraining STG Duration 4 weeks Spindle Sander Goal (LTG) Dannielle reports a overall reducation in urinary urgency and is able to extend her voids to every 2 hours during the day and only waking 1-2 times per night LTG Duration 12 weeks Assessment Summary Assessment Dannielle is a 68 year old female reffered to PT with pelvic organ prolapse and urinary urgency. Dannielle has long history of constipation. Dannielle reports it is not uncommon for her to go 3-4 days between bowel movements. She has a history of straining with bowel movements . Dannielle reports intercourse can be painful as well with insertion. She is taking estrogen cream topically applied to the introitus as well as oral estradiol and progesterone. Her travels for work and can be gone for up to 6 weeks at a time so upon return intercourse can be initially painful. She has been diagnosed with 1-2 degree uterine prolapse, 1-2 degree cystocele, and 1-2 degree rectocele. Time was spent today educating Dannielle on a bowel program to help improve the frequency and ease of her bowel movements to avoid both straining and irritation to the bladder. She was educated on how constipation can contribute to urinary urgency. Dannielle was educated on ILU self massage to help to promote improved bowel movements and educated on use of a squatty potty. She reports because she is short her feet do not touch the floor when she uses her toilet. I described the squatty potty as a way to have foot support and to help relax the pelvic floor for better ease with bowel movements. Dannielle was also instructed on pelvic floor long holds for endurance contractions. She is a good candidate for PT. Physical Therapy Plan Frequency and Duration Frequency of Treatment 1x/Week Duration of treatment (weeks) 12 Plan of Care Start Date 06/20/24 Plan of Care End Date 09/12/24 Therapeutic Interventions Therapeutic Interventions Home Exercise Program,Manual Therapy,Neuromuscular Re- education,Patient/Caregiver Education,Self-Care/Home Management,Soft Tissue Mobilization,Therapeutic Exercises Modalities Biofeedback Next Visit Focus/Plan Next Note Type Treatment Note Next Visit Plan Begin EMG biofeedback for pelvic floor endurance training, review ILU massage over the abdominal wall
--- NOTE | 2024-06-20 16:00 | PT.OPPOC ---
Physical, Occupational & Speech Therapy At [facility] Current Diagnoses Cystocele, unspecified (06/20/24) Pelvic muscle wasting (06/20/24) Nocturia (06/20/24) Urgency of urination (06/20/24) Visit Care Team Role Provider Type Sj Gomez MD Family Provider Physician Primary Care Provider Specialty: Internal Medicine Address: [address] [place] [address], [address], [address] Email: [email or web address] Asiya Mendosa MD Attending Provider Physician Referring Provider Specialty: Gynecology UTILITY CLERK Obstetrics Address: [address] [place] [address] [address], [place], [address] Email: [email or web address] Plan Of Care PT-OP-B Current Condition Start: 06/20/24 13:47 Freq: Status: Active Protocol: Document 06/20/24 13:45 [facility] (Rec: 06/20/24 14:38 [facility] [id number]) Current Condition History of Current Condition Onset Date worsening in the past couple of years Current Complaints pelvic heaviness and pressure, urinary urgency History of Current Condition Dannielle is referred to PT due to pelvic organ prolapse and urinary urgency. She notes the last couple of years its gotten worse she has a history of cystocele, uterine prolapse, and rectocele. She feels that she can empty all the way but does have urgency and she drinks a lot of water. Dannielle reports she can go 3- 4 days without a bowel movement. She is taking progesterone , estrogen, and testosterone cream. She does cycle through the testosterone cream. She is walking daily. She seeks PT to help decrease the pelvic organ prolapse and pelvic heaviness as well as decrease her urgency Treatment Goals Patient/Caregiver Goals Decrease urinary urgency and symptoms of pelvic organ prolapse PT-OP-T Assessment and Plan Start: 06/20/24 13:47 Freq: Status: Active Protocol: Document 06/20/24 13:45 [facility] (Rec: 06/29/24 10:00 [facility] [id number]) Physical Therapy Assessment Rehab Potential Rehabilitation Potential Excellent Evaluation Complexity Number of Personal Factors/Comorbidities 0 Number of Body Systems Impaired 1-2 Clinical Presentation at Evaluation Stable Impairments Impairments Activity Tolerance,Pain,Soft Tissue Mobility,Strength Other Impairments pelvic organ prolapse and constipation issues Goals 3 Impairment Decreased endurance of the pelvic floor Short Term Goal (STG) dannielle is able to sustain a pelvic floor contraction in supine x 10 seconds STG Duration 4 weeks Farm Technician Goal (LTG) Dannielle is able to sustain a pelvic floor contraction in standing x 5 seconds LTG Duration 12 weeks 2 Impairment Pelvic pressure and heaviness with pelvic organ prolapse Snf Goal (LTG) Dannielle reports a overall reduction in pelvic heaviness and pressure LTG Duration 12 weeks 1 Impairment urinary urgency and frequency with pt voiding 11-14 times per day and up to 3 times per night Short Term Goal (STG) Dannielle is educated in improved bowel habits to help decrease urinary urgency, the urge deference technique and bladder retraining STG Duration 4 weeks Farm Technician Goal (LTG) Dannielle reports a overall reduction in urinary urgency and is able to extend her voids to every 2 hours during the day and only waking 1-2 times per night LTG Duration 12 weeks Assessment Summary Assessment Dannielle is a 68 year old female refereed to PT with pelvic organ prolapse and urinary urgency. Dannielle has long history of constipation. Dannielle reports it is not uncommon for her to go 3-4 days between bowel movements. She has a history of straining with bowel movements . Dannielle reports intercourse can be painful as well with insertion. She is taking estrogen cream topically applied to the introitus as well as oral estradiol and progesterone. Her travels for work and can be gone for up to 6 weeks at a time so upon return intercourse can be initially painful. She has been diagnosed with 1-2 degree uterine prolapse, 1-2 degree cystocele, and 1-2 degree rectocele. Time was spent today educating Dannielle on a bowel program to help improve the frequency and ease of her bowel movements to avoid both straining and irritation to the bladder. She was educated on how constipation can contribute to urinary urgency. Dannielle was educated on ILU self massage to help to promote improved bowel movements and educated on use of a squatty potty. She reports because she is short her feet do not touch the floor when she uses her toilet. I described the squatty potty as a way to have foot support and to help relax the pelvic floor for better ease with bowel movements. Dannielle was also instructed on pelvic floor long holds for endurance contractions. She is a good candidate for PT. Physical Therapy Plan Frequency and Duration Frequency of Treatment 1x/Week Duration of treatment (weeks) 12 Plan of Care Start Date 06/20/24 Plan of Care End Date 09/12/24 Therapeutic Interventions Therapeutic Interventions Home Exercise Program,Manual Therapy,Neuromuscular Re- education,Patient/Caregiver Education,Self-Care/Home Management,Soft Tissue Mobilization,Therapeutic Exercises Modalities Biofeedback Next Visit Focus/Plan Next Note Type Treatment Note Next Visit Plan Begin EMG biofeedback for pelvic floor endurance training, review ILU massage over the abdominal wall Plan of Care Dates Plan of Care Start Date 06/20/24 Plan of Care End Date 09/12/24 Electronically Signed by: Dory Obando, PT 06/29/24 2607 If you are in agreement with this Plan of Care, please return a signed and dated copy. I have reviewed this Plan of Care and certify that the skilled therapy services above are required to meet the patient?s needs. Physician Signature Date Printed Name and Credentials Clinical Instructor Signature Printed Name and Credentials
--- NOTE | 2024-07-05 12:24 | PT.OTN ---
Current Diagnoses Cystocele, unspecified (07/05/24) Pelvic muscle wasting (07/05/24) Nocturia (07/05/24) Urgency of urination (07/05/24) Physical Therapy Treatment Note PT-OP-A Visit Information Start: 06/20/24 13:47 Freq: Status: Active Protocol: Document 07/05/24 11:15 [facility] (Rec: 07/05/24 12:24 [facility] [id number]) Out-Patient Physical Therapy Visit Information Visit Information Visit Type Treatment Note Visit Start Time 11:15 Visit Stop Time 12:00 Visit Number 2 Evaluation Information Evaluation Date 06/20/24 PT-OP-B Current Condition Start: 06/20/24 13:47 Freq: Status: Active Protocol: Document 06/20/24 13:45 [facility] (Rec: 06/20/24 14:38 [facility] [id number]) Current Condition History of Current Condition Onset Date worsening in the past couple of years Current Complaints pelvic heaviness and pressure, urinary urgency History of Current Condition Dannielle is referred to PT due to pelvic organ prolapse and urinary urgency. She notes the last couple of years its gotten worse she has a history of cystocele, uterine prolapse, and rectocele. She feels that she can empty all the way but does have urgency and she drinks a lot of water. Dannielle reports she can go 3- 4 days without a bowel movement. She is taking progesterone , estrogen, and testosterone cream. She does cycle throught the testosterone cream. She is walking daily. She seeks PT to help decrease the pelvic organ prolapse and pelvic heaviness as well as decrease her urgency Treatment Goals Patient/Caregiver Goals Decrease urinary urgency and symptoms of pelvic organ prolapse PT-OP-C Subjective Start: 06/20/24 13:47 Freq: Status: Active Protocol: Document 07/05/24 11:20 [facility] (Rec: 07/05/24 12:23 [facility] [id number]) OP-PT Subjective Patient Comments Patient Comments has been trying to put her feet on stool when toileting, and is doing her massge and she feels more in control and is going every 2-3 days. PT-OP-F Manual Assessment Start: 06/20/24 13:47 Freq: Status: Active Protocol: Document 06/20/24 13:45 [facility] (Rec: 06/29/24 10:23 [facility] [id number]) Manual Assessments Soft Tissue Assessment Soft Tissue Mobility Assessment fascial tightness across the transverse and descending colon in the abdominal wall, decreased diaphragmatic excursion tightness of the suprapubic fascia and over the bladder PT-OP-I Pelvic Floor Start: 06/20/24 13:47 Freq: Status: Active Protocol: Document 06/20/24 13:45 [facility] (Rec: 06/29/24 09:59 [facility] [id number]) Pelvic Floor Assessment Urine Pelvic Floor Surgery No Urinary Symptoms Urge Sensation,Prolapse Other Urinary Symptoms nocturia 3 times per night and 11-14 times per day Leakage Size Medium Other Leakage Causes leakage with strong cough or sneeze or with a strong urge to void Bowel Bowel Symptoms Constipation Other Bowel Symptoms history of constipation, at times up to 6 days without a bowel movement, often finds she needs to strain to have a bowel movement Comments Pelvic Floor Comments decreased endurance for sustained pelvic floor contractions, pt needs further assessment for pelvic floor strength PT-OP-Q Treatments Start: 06/20/24 13:47 Freq: Status: Active Protocol: Document 07/05/24 11:20 [facility] (Rec: 07/05/24 12:23 [facility] [id number]) Therapeutic Exercises Supine Exercises hip roll outs with theraband Equipment Used 2 x 10 reps Comments resting tone did drop a bit after the hip roll outs pelvic floor resting tone Supine Exercise Name 12 uv at rest with EMG biofeedback Comments average 26 and max 54 resting tone had dropped to 7 after contractions Manual Therapy Treatment Soft Tissue Mobilization suprapubic fascial release Mobilization Type Cross-Friction,Myofascial Release Body Position Hooklying Comments mobilization of the bladder STM over the colon Comments ILU massage and then time was spent on the descending colon as there was fascial restrictions felt Self-Care/Home Management Treatment Education Patient Education Home Exercise Program Other Education dannielle was given a handout with hip abduction with TB and I did elevate her pelvis with the wedge to provide some pelvic decompression. She tolerated this well PT-OP-T Assessment and Plan Start: 06/20/24 13:47 Freq: Status: Active Protocol: Document 07/05/24 11:20 [facility] (Rec: 07/05/24 12:23 [facility] [id number]) Physical Therapy Assessment Assessment Summary Assessment Dannielle did well with MFR techniques today, she has restrictions on the left side of the descending colon and in the suprapubic fascia, she would benefit from thoracic rotation exercises to help stimulate bowel movements Physical Therapy Plan Frequency and Duration Frequency of Treatment 1x/Week Duration of treatment (weeks) 12 Plan of Care Start Date 06/20/24 Plan of Care End Date 09/12/24 Therapeutic Interventions Therapeutic Interventions Home Exercise Program,Manual Therapy,Neuromuscular Re- education,Patient/Caregiver Education,Self-Care/Home Management,Soft Tissue Mobilization,Therapeutic Exercises Modalities Biofeedback Next Visit Focus/Plan Next Note Type Treatment Note Next Visit Plan continue with EMG biofeedback for endurance training of the pelvic floor, MFR techniques for the colon and suprapubic fascia and thoracic rotation exercises
--- NOTE | 2024-07-12 12:24 | PT.OTN ---
Current Diagnoses Cystocele, unspecified (07/12/24) Pelvic muscle wasting (07/12/24) Nocturia (07/12/24) Urgency of urination (07/12/24) Physical Therapy Treatment Note PT-OP-A Visit Information Start: 06/20/24 13:47 Freq: Status: Active Protocol: Document 07/12/24 11:20 [facility] (Rec: 07/12/24 12:18 [facility] [id number]) Out-Patient Physical Therapy Visit Information Visit Information Visit Type Treatment Note Visit Start Time 11:15 Visit Stop Time 12:00 Visit Number 3 Evaluation Information Evaluation Date 07/12/24 PT-OP-B Current Condition Start: 06/20/24 13:47 Freq: Status: Active Protocol: Document 06/20/24 13:45 [facility] (Rec: 06/20/24 14:38 [facility] [id number]) Current Condition History of Current Condition Onset Date worsening in the past couple of years Current Complaints pelvic heaviness and pressure, urinary urgency History of Current Condition Dannielle is referred to PT due to pelvic organ prolapse and urinary urgency. She notes the last couple of years its gotten worse she has a history of cystocele, uterine prolapse, and rectocele. She feels that she can empty all the way but does have urgency and she drinks a lot of water. Dannielle reports she can go 3- 4 days without a bowel movement. She is taking progesterone , estrogen, and testosterone cream. She does cycle throught the testosterone cream. She is walking daily. She seeks PT to help decrease the pelvic organ prolapse and pelvic heaviness as well as decrease her urgency Treatment Goals Patient/Caregiver Goals Decrease urinary urgency and symptoms of pelvic organ prolapse PT-OP-C Subjective Start: 06/20/24 13:47 Freq: Status: Active Protocol: Document 07/12/24 11:20 [facility] (Rec: 07/12/24 12:18 [facility] [id number]) OP-PT Subjective Patient Comments Patient Comments bowel movements are still 3 days inbetween but she feels she is able to empty her colon Patient Reported Progress Improving PT-OP-F Manual Assessment Start: 06/20/24 13:47 Freq: Status: Active Protocol: Document 06/20/24 13:45 [facility] (Rec: 06/29/24 10:23 [facility] [id number]) Manual Assessments Soft Tissue Assessment Soft Tissue Mobility Assessment fascial tightness across the transverse and descending colon in the abdominal wall, decreased diaphragmatic excursion tightness of the suprapubic fascia and over the bladder PT-OP-I Pelvic Floor Start: 06/20/24 13:47 Freq: Status: Active Protocol: Document 06/20/24 13:45 [facility] (Rec: 06/29/24 09:59 [facility] [id number]) Pelvic Floor Assessment Urine Pelvic Floor Surgery No Urinary Symptoms Urge Sensation,Prolapse Other Urinary Symptoms nocturia 3 times per night and 11-14 times per day Leakage Size Medium Other Leakage Causes leakage with strong cough or sneeze or with a strong urge to void Bowel Bowel Symptoms Constipation Other Bowel Symptoms history of constipation, at times up to 6 days without a bowel movement, often finds she needs to strain to have a bowel movement Comments Pelvic Floor Comments decreased endurance for sustained pelvic floor contractions, pt needs further assessment for pelvic floor strength PT-OP-Q Treatments Start: 06/20/24 13:47 Freq: Status: Active Protocol: Document 07/12/24 11:20 [facility] (Rec: 07/12/24 12:18 [facility] [id number]) Therapeutic Exercises Supine Exercises hip roll outs with theraband Equipment Used 2 x 10 reps Comments resting tone did drop a bit after the hip roll outs pelvic floor resting tone Supine Exercise Name 6.5 Comments average 17 and max 34 pelvic floor long holds Reps/Minutes worked on 10 sec hold with 10 second relax Comments pt to do 5 sec holds at home for HEP Manual Therapy Treatment Soft Tissue Mobilization suprapubic fascial release Mobilization Type Myofascial Release Body Position Hooklying Comments mobilization of the bladder STM over the colon Comments ILU massage and then time was spent on the descending colon as there was fascial restrictions felt PT-OP-T Assessment and Plan Start: 06/20/24 13:47 Freq: Status: Active Protocol: Document 07/12/24 11:20 [facility] (Rec: 07/12/24 12:18 [facility] [id number]) Physical Therapy Assessment Assessment Summary Assessment Left sided tightness over the descending colon today Physical Therapy Plan Frequency and Duration Frequency of Treatment 1x/Week Duration of treatment (weeks) 12 Plan of Care Start Date 06/20/24 Plan of Care End Date 09/12/24 Therapeutic Interventions Therapeutic Interventions Home Exercise Program,Manual Therapy,Neuromuscular Re- education,Patient/Caregiver Education,Self-Care/Home Management,Soft Tissue Mobilization,Therapeutic Exercises Modalities Biofeedback Next Visit Focus/Plan Next Note Type Treatment Note Next Visit Plan continue with plan and add in ball squeeze with pelvic floor and bridges
--- NOTE | 2024-07-19 12:25 | PT.OTN ---
Current Diagnoses Cystocele, unspecified (07/19/24) Pelvic muscle wasting (07/19/24) Nocturia (07/19/24) Urgency of urination (07/19/24) Physical Therapy Treatment Note PT-OP-A Visit Information Start: 06/20/24 13:47 Freq: Status: Active Protocol: Document 07/19/24 11:22 [facility] (Rec: 07/19/24 12:21 [facility] [id number]) Out-Patient Physical Therapy Visit Information Visit Information Visit Type Treatment Note Visit Start Time 11:20 Visit Stop Time 12:05 Visit Number 4 PT-OP-B Current Condition Start: 06/20/24 13:47 Freq: Status: Active Protocol: Document 06/20/24 13:45 [facility] (Rec: 06/20/24 14:38 [facility] [id number]) Current Condition History of Current Condition Onset Date worsening in the past couple of years Current Complaints pelvic heaviness and pressure, urinary urgency History of Current Condition Dannielle is referred to PT due to pelvic organ prolapse and urinary urgency. She notes the last couple of years its gotten worse she has a history of cystocele, uterine prolapse, and rectocele. She feels that she can empty all the way but does have urgency and she drinks a lot of water. Dannielle reports she can go 3- 4 days without a bowel movement. She is taking progesterone , estrogen, and testosterone cream. She does cycle throught the testosterone cream. She is walking daily. She seeks PT to help decrease the pelvic organ prolapse and pelvic heaviness as well as decrease her urgency Treatment Goals Patient/Caregiver Goals Decrease urinary urgency and symptoms of pelvic organ prolapse PT-OP-C Subjective Start: 06/20/24 13:47 Freq: Status: Active Protocol: Document 07/19/24 11:22 [facility] (Rec: 07/19/24 12:21 [facility] [id number]) OP-PT Subjective Patient Comments Patient Comments bowel movements are still slow and she is still having to push pressure is a little better and decreased frequency to void. PT-OP-F Manual Assessment Start: 06/20/24 13:47 Freq: Status: Active Protocol: Document 06/20/24 13:45 [facility] (Rec: 06/29/24 10:23 [facility] [id number]) Manual Assessments Soft Tissue Assessment Soft Tissue Mobility Assessment fascial tightness across the transverse and descending colon in the abdominal wall, decreased diaphragmatic excursion tightness of the suprapubic fascia and over the bladder PT-OP-I Pelvic Floor Start: 06/20/24 13:47 Freq: Status: Active Protocol: Document 06/20/24 13:45 [facility] (Rec: 06/29/24 09:59 [facility] [id number]) Pelvic Floor Assessment Urine Pelvic Floor Surgery No Urinary Symptoms Urge Sensation,Prolapse Other Urinary Symptoms nocturia 3 times per night and 11-14 times per day Leakage Size Medium Other Leakage Causes leakage with strong cough or sneeze or with a strong urge to void Bowel Bowel Symptoms Constipation Other Bowel Symptoms history of constipation, at times up to 6 days without a bowel movement, often finds she needs to strain to have a bowel movement Comments Pelvic Floor Comments decreased endurance for sustained pelvic floor contractions, pt needs further assessment for pelvic floor strength PT-OP-Q Treatments Start: 06/20/24 13:47 Freq: Status: Active Protocol: Document 07/19/24 11:22 [facility] (Rec: 07/19/24 12:21 [facility] [id number]) Therapeutic Exercises Supine Exercises pelvic floor resting tone Supine Exercise Name HEP Comments 14.5 and 39 uv max pelvic floor long holds Reps/Minutes 10 reps 10 sec hold and 10 sec relaxation Comments increased to 10 second hold for HEP Other Exercises lower trunk rotation Reps/Minutes x 10 reps Comments left sided thread the needle Side bilateral Reps/Minutes 5-10 side bends Reps/Minutes x 10 cat cow Reps/Minutes x 10 PT-OP-T Assessment and Plan Start: 06/20/24 13:47 Freq: Status: Active Protocol: Document 07/19/24 11:22 [facility] (Rec: 07/19/24 12:21 [facility] [id number]) Physical Therapy Assessment Goals 3 Impairment Decreased endurance of the pelvic floor Short Term Goal (STG) dannielle is able to sustain a pelvic floor contraction in supine x 10 seconds STG Duration 4 weeks Proj Mgr Goal (LTG) Dannielle is able to sustain a pelvic floor contraction in standing x 5 seconds LTG Duration 12 weeks 2 Impairment Pelvic pressure and heaviness with pelvic organ prolapse Proj Mgr Goal (LTG) Dannielle reports a overall reduction in pelvic heaviness and pressure LTG Duration 12 weeks 1 Impairment urinary urgency and frequency with pt voiding 11-14 times per day and up to 3 times per night Short Term Goal (STG) Dannielle is educated in improved bowel habits to help decrease urinary urgency, the urge deference technique and bladder retraining STG Duration 4 weeks Proj Mgr Goal (LTG) Dannielle reports a overall reducation in urinary urgency and is able to extend her voids to every 2 hours during the day and only waking 1-2 times per night LTG Duration 12 weeks Assessment Summary Assessment I added in lower trunk rotation as well as pelvic mobility on hands and knees to promote improved trunk mobility to stimulating bowel movements Physical Therapy Plan Frequency and Duration Frequency of Treatment 1x/Week Duration of treatment (weeks) 12 Plan of Care Start Date 06/20/24 Plan of Care End Date 09/12/24 Therapeutic Interventions Therapeutic Interventions Home Exercise Program,Manual Therapy,Neuromuscular Re- education,Patient/Caregiver Education,Self-Care/Home Management,Soft Tissue Mobilization,Therapeutic Exercises Modalities Biofeedback Next Visit Focus/Plan Next Note Type Treatment Note Next Visit Plan review new exercises and see how Dannielle did with increasing duration of her pelvic floor long holds, continue with fascial release techniques,
--- NOTE | 2024-07-26 12:33 | PT.OTN ---
Current Diagnoses Cystocele, unspecified (07/26/24) Pelvic muscle wasting (07/26/24) Nocturia (07/26/24) Urgency of urination (07/26/24) Physical Therapy Treatment Note PT-OP-A Visit Information Start: 06/20/24 13:47 Freq: Status: Active Protocol: Document 07/26/24 12:32 [facility] (Rec: 07/26/24 12:33 [facility] [id number]) Out-Patient Physical Therapy Visit Information Visit Information Visit Type Treatment Note Visit Start Time 11:30 Visit Stop Time 12:15 Visit Number 5 PT-OP-B Current Condition Start: 06/20/24 13:47 Freq: Status: Active Protocol: Document 06/20/24 13:45 [facility] (Rec: 06/20/24 14:38 [facility] [id number]) Current Condition History of Current Condition Onset Date worsening in the past couple of years Current Complaints pelvic heaviness and pressure, urinary urgency History of Current Condition Dannielle is referred to PT due to pelvic organ prolapse and urinary urgency. She notes the last couple of years its gotten worse she has a history of cystocele, uterine prolapse, and rectocele. She feels that she can empty all the way but does have urgency and she drinks a lot of water. Dannielle reports she can go 3- 4 days without a bowel movement. She is taking progesterone , estrogen, and testosterone cream. She does cycle throught the testosterone cream. She is walking daily. She seeks PT to help decrease the pelvic organ prolapse and pelvic heaviness as well as decrease her urgency Treatment Goals Patient/Caregiver Goals Decrease urinary urgency and symptoms of pelvic organ prolapse PT-OP-C Subjective Start: 06/20/24 13:47 Freq: Status: Active Protocol: Document 07/26/24 12:32 [facility] (Rec: 07/26/24 12:33 [facility] [id number]) OP-PT Subjective Patient Comments Patient Comments Dannielle reports its easier to do her exercises here , still having difficulty with stimulating bowel movements PT-OP-F Manual Assessment Start: 06/20/24 13:47 Freq: Status: Active Protocol: Document 06/20/24 13:45 [facility] (Rec: 06/29/24 10:23 [facility] [id number]) Manual Assessments Soft Tissue Assessment Soft Tissue Mobility Assessment fascial tightness across the transverse and descending colon in the abdominal wall, decreased diaphragmatic excursion tightness of the suprapubic fascia and over the bladder PT-OP-I Pelvic Floor Start: 06/20/24 13:47 Freq: Status: Active Protocol: Document 06/20/24 13:45 [facility] (Rec: 06/29/24 09:59 [facility] [id number]) Pelvic Floor Assessment Urine Pelvic Floor Surgery No Urinary Symptoms Urge Sensation,Prolapse Other Urinary Symptoms nocturia 3 times per night and 11-14 times per day Leakage Size Medium Other Leakage Causes leakage with strong cough or sneeze or with a strong urge to void Bowel Bowel Symptoms Constipation Other Bowel Symptoms history of constipation, at times up to 6 days without a bowel movement, often finds she needs to strain to have a bowel movement Comments Pelvic Floor Comments decreased endurance for sustained pelvic floor contractions, pt needs further assessment for pelvic floor strength PT-OP-Q Treatments Start: 06/20/24 13:47 Freq: Status: Active Protocol: Document 07/26/24 11:37 [facility] (Rec: 07/26/24 12:32 [facility] [id number]) Therapeutic Exercises Supine Exercises hip roll outs with theraband Equipment Used 2 x 10 reps Comments resting tone did drop a bit after the hip roll outs pelvic floor resting tone Supine Exercise Name 2.5 pelvic floor long holds Reps/Minutes 10 reps 10 sec hold and 10 sec relaxation Comments increased to 10 second hold for HEP Other Exercises lower trunk rotation Reps/Minutes x 10 reps Comments left sided thread the needle Side bilateral Reps/Minutes 5-10 side bends Reps/Minutes x 10 cat cow Reps/Minutes x 10 PT-OP-T Assessment and Plan Start: 06/20/24 13:47 Freq: Status: Active Protocol: Document 07/26/24 11:37 [facility] (Rec: 07/26/24 12:32 [facility] [id number]) Physical Therapy Assessment Assessment Summary Assessment dannielle is still having difficulty with bowel movements, I encouraged small meals througout the day and a walk as well as her exercises Physical Therapy Plan Frequency and Duration Frequency of Treatment 1x/Week Duration of treatment (weeks) 12 Plan of Care Start Date 06/20/24 Plan of Care End Date 09/12/24 Therapeutic Interventions Therapeutic Interventions Home Exercise Program,Manual Therapy,Neuromuscular Re- education,Patient/Caregiver Education,Self-Care/Home Management,Soft Tissue Mobilization,Therapeutic Exercises Modalities Biofeedback Next Visit Focus/Plan Next Note Type Treatment Note Next Visit Plan continue working on endurance holds of the pelvic floor
--- NOTE | 2024-08-02 12:31 | PT.OTN ---
Current Diagnoses Cystocele, unspecified (08/02/24) Pelvic muscle wasting (08/02/24) Nocturia (08/02/24) Urgency of urination (08/02/24) Physical Therapy Treatment Note PT-OP-A Visit Information Start: 06/20/24 13:47 Freq: Status: Active Protocol: Document 08/02/24 11:34 [facility] (Rec: 08/02/24 12:30 [facility] [id number]) Out-Patient Physical Therapy Visit Information Visit Information Visit Type Treatment Note PT-OP-B Current Condition Start: 06/20/24 13:47 Freq: Status: Active Protocol: Document 06/20/24 13:45 [facility] (Rec: 06/20/24 14:38 [facility] [id number]) Current Condition History of Current Condition Onset Date worsening in the past couple of years Current Complaints pelvic heaviness and pressure, urinary urgency History of Current Condition Dannielle is referred to PT due to pelvic organ prolapse and urinary urgency. She notes the last couple of years its gotten worse she has a history of cystocele, uterine prolapse, and rectocele. She feels that she can empty all the way but does have urgency and she drinks a lot of water. Dannielle reports she can go 3- 4 days without a bowel movement. She is taking progesterone , estrogen, and testosterone cream. She does cycle throught the testosterone cream. She is walking daily. She seeks PT to help decrease the pelvic organ prolapse and pelvic heaviness as well as decrease her urgency Treatment Goals Patient/Caregiver Goals Decrease urinary urgency and symptoms of pelvic organ prolapse PT-OP-C Subjective Start: 06/20/24 13:47 Freq: Status: Active Protocol: Document 08/02/24 11:34 [facility] (Rec: 08/02/24 12:30 [facility] [id number]) OP-PT Subjective Patient Comments Patient Comments pt notes not as much pressure PT-OP-F Manual Assessment Start: 06/20/24 13:47 Freq: Status: Active Protocol: Document 06/20/24 13:45 [facility] (Rec: 06/29/24 10:23 [facility] [id number]) Manual Assessments Soft Tissue Assessment Soft Tissue Mobility Assessment fascial tightness across the transverse and descending colon in the abdominal wall, decreased diaphragmatic excursion tightness of the suprapubic fascia and over the bladder PT-OP-I Pelvic Floor Start: 06/20/24 13:47 Freq: Status: Active Protocol: Document 06/20/24 13:45 [facility] (Rec: 06/29/24 09:59 [facility] [id number]) Pelvic Floor Assessment Urine Pelvic Floor Surgery No Urinary Symptoms Urge Sensation,Prolapse Other Urinary Symptoms nocturia 3 times per night and 11-14 times per day Leakage Size Medium Other Leakage Causes leakage with strong cough or sneeze or with a strong urge to void Bowel Bowel Symptoms Constipation Other Bowel Symptoms history of constipation, at times up to 6 days without a bowel movement, often finds she needs to strain to have a bowel movement Comments Pelvic Floor Comments decreased endurance for sustained pelvic floor contractions, pt needs further assessment for pelvic floor strength PT-OP-Q Treatments Start: 06/20/24 13:47 Freq: Status: Active Protocol: Document 08/02/24 11:34 [facility] (Rec: 08/02/24 12:30 [facility] [id number]) Therapeutic Exercises Supine Exercises pelvic floor resting tone Supine Exercise Name higher today at 6.0 pelvic floor long holds Reps/Minutes 10 sec on 10 sec off Comments 19.9 and max of 41.7 Other Exercises lower trunk rotation Reps/Minutes x 10 reps Comments left sided thread the needle Side bilateral Reps/Minutes 5-10 side bends Reps/Minutes x 10 cat cow Reps/Minutes x 10 Manual Therapy Treatment Soft Tissue Mobilization suprapubic fascial release Mobilization Type Myofascial Release Body Position Hooklying Comments mobilization of the bladder STM over the colon Comments ILU massage and then time was spent on the descending colon as there was fascial restrictions felt PT-OP-T Assessment and Plan Start: 06/20/24 13:47 Freq: Status: Active Protocol: Document 08/02/24 11:34 [facility] (Rec: 08/02/24 12:30 [facility] [id number]) Physical Therapy Assessment Assessment Summary Assessment Dannielle notes she is doing better with a little bit of decreased pressure. SHe is still limited in her mobility of her thoracic spine and resting tone of the pelvic floor was elevated today Physical Therapy Plan Frequency and Duration Frequency of Treatment 1x/Week Duration of treatment (weeks) 12 Plan of Care Start Date 06/20/24 Plan of Care End Date 09/12/24 Therapeutic Interventions Therapeutic Interventions Home Exercise Program,Manual Therapy,Neuromuscular Re- education,Patient/Caregiver Education,Self-Care/Home Management,Soft Tissue Mobilization,Therapeutic Exercises Modalities Biofeedback Next Visit Focus/Plan Next Note Type Treatment Note Next Visit Plan continue working on endurance holds of the pelvic floor and encouraging thoracic mobility
--- NOTE | 2024-08-09 12:38 | PT.OTN ---
Current Diagnoses Cystocele, unspecified (08/09/24) Pelvic muscle wasting (08/09/24) Nocturia (08/09/24) Urgency of urination (08/09/24) Physical Therapy Treatment Note PT-OP-A Visit Information Start: 06/20/24 13:47 Freq: Status: Active Protocol: Document 08/02/24 11:34 [facility] (Rec: 08/02/24 12:30 [facility] [id number]) Out-Patient Physical Therapy Visit Information Visit Information Visit Type Treatment Note PT-OP-B Current Condition Start: 06/20/24 13:47 Freq: Status: Active Protocol: Document 06/20/24 13:45 [facility] (Rec: 06/20/24 14:38 [facility] [id number]) Current Condition History of Current Condition Onset Date worsening in the past couple of years Current Complaints pelvic heaviness and pressure, urinary urgency History of Current Condition Dannielle is referred to PT due to pelvic organ prolapse and urinary urgency. She notes the last couple of years its gotten worse she has a history of cystocele, uterine prolapse, and rectocele. She feels that she can empty all the way but does have urgency and she drinks a lot of water. Dannielle reports she can go 3- 4 days without a bowel movement. She is taking progesterone , estrogen, and testosterone cream. She does cycle throught the testosterone cream. She is walking daily. She seeks PT to help decrease the pelvic organ prolapse and pelvic heaviness as well as decrease her urgency Treatment Goals Patient/Caregiver Goals Decrease urinary urgency and symptoms of pelvic organ prolapse PT-OP-C Subjective Start: 06/20/24 13:47 Freq: Status: Active Protocol: Document 08/09/24 11:35 [facility] (Rec: 08/09/24 12:38 [facility] [id number]) OP-PT Subjective Patient Comments Patient Comments pt feels like she is getting a little more on track with her bowel movements, she is trying to eat celrey, she isn' t feeling a lot of pelvic pressure PT-OP-F Manual Assessment Start: 06/20/24 13:47 Freq: Status: Active Protocol: Document 06/20/24 13:45 [facility] (Rec: 06/29/24 10:23 [facility] [id number]) Manual Assessments Soft Tissue Assessment Soft Tissue Mobility Assessment fascial tightness across the transverse and descending colon in the abdominal wall, decreased diaphragmatic excursion tightness of the suprapubic fascia and over the bladder PT-OP-I Pelvic Floor Start: 06/20/24 13:47 Freq: Status: Active Protocol: Document 06/20/24 13:45 [facility] (Rec: 06/29/24 09:59 [facility] [id number]) Pelvic Floor Assessment Urine Pelvic Floor Surgery No Urinary Symptoms Urge Sensation,Prolapse Other Urinary Symptoms nocturia 3 times per night and 11-14 times per day Leakage Size Medium Other Leakage Causes leakage with strong cough or sneeze or with a strong urge to void Bowel Bowel Symptoms Constipation Other Bowel Symptoms history of constipation, at times up to 6 days without a bowel movement, often finds she needs to strain to have a bowel movement Comments Pelvic Floor Comments decreased endurance for sustained pelvic floor contractions, pt needs further assessment for pelvic floor strength PT-OP-Q Treatments Start: 06/20/24 13:47 Freq: Status: Active Protocol: Document 08/09/24 11:35 [facility] (Rec: 08/09/24 12:38 [facility] [id number]) Therapeutic Exercises Other Exercises soraida pose Reps/Minutes hold 1-2 min lower trunk rotation Reps/Minutes x 10 reps Comments left sided thread the needle Side bilateral Reps/Minutes 5-10 side bends Reps/Minutes x 10 cat cow Reps/Minutes x 10 PT-OP-T Assessment and Plan Start: 06/20/24 13:47 Freq: Status: Active Protocol: Document 08/09/24 11:35 [facility] (Rec: 08/09/24 12:38 [facility] [id number]) Physical Therapy Assessment Goals 3 Impairment Decreased endurance of the pelvic floor Short Term Goal (STG) dannielle is able to sustain a pelvic floor contraction in supine x 10 seconds STG Duration 4 weeks Skein Straightener Goal (LTG) Dannielle is able to sustain a pelvic floor contraction in standing x 5 seconds LTG Duration 12 weeks 2 Impairment Pelvic pressure and heaviness with pelvic organ prolapse [facility]ci Goal (LTG) Dannielle reports a overall reduction in pelvic heaviness and pressure LTG Duration 12 weeks 1 Impairment urinary urgency and frequency with pt voiding 11-14 times per day and up to 3 times per night Short Term Goal (STG) Dannielle is educated in improved bowel habits to help decrease urinary urgency, the urge deference technique and bladder retraining STG Duration 4 weeks [facility] Goal (LTG) Dannielle reports a overall reducation in urinary urgency and is able to extend her voids to every 2 hours during the day and only waking 1-2 times per night LTG Duration 12 weeks Assessment Summary Assessment Dannielle notes decreased c/o pelvic pressure, she is working on her home program and is slowly making improvements with improved thoracic mobility and trying to increase her fiber intake during the day. Physical Therapy Plan Frequency and Duration Frequency of Treatment 1x/Week Duration of treatment (weeks) 12 Plan of Care Start Date 06/20/24 Plan of Care End Date 09/12/24 Therapeutic Interventions Therapeutic Interventions Home Exercise Program,Manual Therapy,Neuromuscular Re- education,Patient/Caregiver Education,Self-Care/Home Management,Soft Tissue Mobilization,Therapeutic Exercises Modalities Biofeedback Next Visit Focus/Plan Next Note Type Treatment Note Next Visit Plan continue working on endurance holds of the pelvic floor and encouraging thoracic mobility
--- NOTE | 2024-08-31 16:00 | PT.OTN ---
Current Diagnoses Cystocele, unspecified (08/31/24) Pelvic muscle wasting (08/31/24) Nocturia (08/31/24) Urgency of urination (08/31/24) Physical Therapy Treatment Note PT-OP-A Visit Information Start: 06/20/24 13:47 Freq: Status: Active Protocol: Document 08/31/24 13:03 [facility] (Rec: 08/31/24 13:49 [facility] [id number]) Out-Patient Physical Therapy Visit Information Visit Information Visit Type Treatment Note Visit Start Time 13:00 Visit Stop Time 13:45 Visit Number 8 PT-OP-B Current Condition Start: 06/20/24 13:47 Freq: Status: Active Protocol: Document 06/20/24 13:45 [facility] (Rec: 06/20/24 14:38 [facility] [id number]) Current Condition History of Current Condition Onset Date worsening in the past couple of years Current Complaints pelvic heaviness and pressure, urinary urgency History of Current Condition Dannielle is referred to PT due to pelvic organ prolapse and urinary urgency. She notes the last couple of years its gotten worse she has a history of cystocele, uterine prolapse, and rectocele. She feels that she can empty all the way but does have urgency and she drinks a lot of water. Dannielle reports she can go 3- 4 days without a bowel movement. She is taking progesterone , estrogen, and testosterone cream. She does cycle throught the testosterone cream. She is walking daily. She seeks PT to help decrease the pelvic organ prolapse and pelvic heaviness as well as decrease her urgency Treatment Goals Patient/Caregiver Goals Decrease urinary urgency and symptoms of pelvic organ prolapse PT-OP-C Subjective Start: 06/20/24 13:47 Freq: Status: Active Protocol: Document 08/31/24 13:03 [facility] (Rec: 08/31/24 13:49 [facility] [id number]) OP-PT Subjective Patient Comments Patient Comments Dannielle notes she feels more confident about what she is doing, bowel movements are a little better. No complaints of cramping or pressure. She notes it still difficult to hold 10 seconds for her pelvic floor endurance holds PT-OP-F Manual Assessment Start: 06/20/24 13:47 Freq: Status: Active Protocol: Document 06/20/24 13:45 [facility] (Rec: 06/29/24 10:23 [facility] [id number]) Manual Assessments Soft Tissue Assessment Soft Tissue Mobility Assessment fascial tightness across the transverse and descending colon in the abdominal wall, decreased diaphragmatic excursion tightness of the suprapubic fascia and over the bladder PT-OP-I Pelvic Floor Start: 06/20/24 13:47 Freq: Status: Active Protocol: Document 06/20/24 13:45 [facility] (Rec: 06/29/24 09:59 [facility] [id number]) Pelvic Floor Assessment Urine Pelvic Floor Surgery No Urinary Symptoms Urge Sensation,Prolapse Other Urinary Symptoms nocturia 3 times per night and 11-14 times per day Leakage Size Medium Other Leakage Causes leakage with strong cough or sneeze or with a strong urge to void Bowel Bowel Symptoms Constipation Other Bowel Symptoms history of constipation, at times up to 6 days without a bowel movement, often finds she needs to strain to have a bowel movement Comments Pelvic Floor Comments decreased endurance for sustained pelvic floor contractions, pt needs further assessment for pelvic floor strength PT-OP-Q Treatments Start: 06/20/24 13:47 Freq: Status: Active Protocol: Document 08/31/24 13:03 [facility] (Rec: 08/31/24 13:49 [facility] [id number]) Therapeutic Exercises Supine Exercises quick flicks Reps/Minutes x 10 reps hip roll outs with theraband Equipment Used 2 x 10 reps Comments resting tone did drop a bit after the hip roll outs pelvic floor long holds Reps/Minutes 10 seconds on and 10 seconds off Comments 14.6 and max of 37 Manual Therapy Treatment Soft Tissue Mobilization suprapubic fascial release Mobilization Type Myofascial Release Body Position Hooklying Comments mobilization of the bladder STM over the colon Comments ILU massage and then time was spent on the descending colon as there was fascial restrictions felt PT-OP-T Assessment and Plan Start: 06/20/24 13:47 Freq: Status: Active Protocol: Document 08/31/24 13:03 [facility] (Rec: 08/31/24 13:49 [facility] [id number]) Physical Therapy Assessment Goals 3 Impairment Decreased endurance of the pelvic floor Short Term Goal (STG) dannielle is able to sustain a pelvic floor contraction in supine x 10 seconds good progress but not at 10 seconds yet STG Duration 4 weeks Detention Goal (LTG) Dannielle is able to sustain a pelvic floor contraction in standing x 5 seconds goal not yet met LTG Duration 12 weeks 2 Impairment Pelvic pressure and heaviness with pelvic organ prolapse Roll Reclaimer Goal (LTG) Dannielle reports a overall reduction in pelvic heaviness and pressure good progress as Dannielle is not experiencing as much pressure LTG Duration 12 weeks 1 Impairment urinary urgency and frequency with pt voiding 11-14 times per day and up to 3 times per night Short Term Goal (STG) Dannielle is educated in improved bowel habits to help decrease urinary urgency, the urge deference technique and bladder retraining goal met STG Duration 4 weeks Roll Reclaimer Goal (LTG) Dannielle reports a overall reducation in urinary urgency and is able to extend her voids to every 2 hours during the day and only waking 1-2 times per night excellent progress LTG Duration 12 weeks Assessment Summary Assessment Dannielle notes decreased c/o pelvic pressure, she is working on her home program and is slowly making improvements with improved pelvci floor strength, thoracic mobility and trying to increase her fiber intake during the day. Bowel movement are a bit easier for he now however she will still go a few days between bowel movements. She notes she is not feeling the cramping and not as much of the pelvic pressure. She has a MD apptment coming up to discuss surgery verses conservative management. She would like to continue PT as she feels she is slowly making progress Physical Therapy Plan Frequency and Duration Frequency of Treatment 1x/Week Duration of treatment (weeks) 12 Plan of Care Start Date 08/31/24 Plan of Care End Date 11/23/24 Therapeutic Interventions Therapeutic Interventions Home Exercise Program,Manual Therapy,Neuromuscular Re- education,Patient/Caregiver Education,Self-Care/Home Management,Soft Tissue Mobilization,Therapeutic Exercises Modalities Biofeedback Next Visit Focus/Plan Next Note Type Treatment Note Next Visit Plan continue working on endurance holds of the pelvic floor and encouraging thoracic mobility, manual release of the abdominal wall, subprapubic fascia and over the transverse and descending colon
--- NOTE | 2024-08-31 16:00 | PT.OPPOC ---
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 Address: [address] [place] [address] [address], [place], [address] Email: [email or web address] Plan Of Care PT-OP-B Current Condition Start: 06/20/24 13:47 Freq: Status: Active Protocol: Document 06/20/24 13:45 [facility] (Rec: 06/20/24 14:38 [facility] [id number]) Current Condition History of Current Condition Onset Date worsening in the past couple of years Current Complaints pelvic heaviness and pressure, urinary urgency History of Current Condition Dannielle is referred to PT due to pelvic organ prolapse and urinary urgency. She notes the last couple of years its gotten worse she has a history of cystocele, uterine prolapse, and rectocele. She feels that she can empty all the way but does have urgency and she drinks a lot of water. Dannielle reports she can go 3- 4 days without a bowel movement. She is taking progesterone , estrogen, and testosterone cream. She does cycle through the testosterone cream. She is walking daily. She seeks PT to help decrease the pelvic organ prolapse and pelvic heaviness as well as decrease her urgency Treatment Goals Patient/Caregiver Goals Decrease urinary urgency and symptoms of pelvic organ prolapse PT-OP-T Assessment and Plan Start: 06/20/24 13:47 Freq: Status: Active Protocol: Document 08/31/24 13:03 [facility] (Rec: 08/31/24 13:49 [facility] [id number]) Physical Therapy Assessment Goals 3 Impairment Decreased endurance of the pelvic floor Short Term Goal (STG) dannielle is able to sustain a pelvic floor contraction in supine x 10 seconds good progress but not at 10 seconds yet STG Duration 4 weeks Shelter Goal (LTG) Dannielle is able to sustain a pelvic floor contraction in standing x 5 seconds goal not yet met LTG Duration 12 weeks 2 Impairment Pelvic pressure and heaviness with pelvic organ prolapse Shelter Goal (LTG) Dannielle reports a overall reduction in pelvic heaviness and pressure good progress as Dannielle is not experiencing as much pressure LTG Duration 12 weeks 1 Impairment urinary urgency and frequency with pt voiding 11-14 times per day and up to 3 times per night Short Term Goal (STG) Dannielle is educated in improved bowel habits to help decrease urinary urgency, the urge deference technique and bladder retraining goal met STG Duration 4 weeks Acupressure Therapist Goal (LTG) Dannielle reports a overall reduction in urinary urgency and is able to extend her voids to every 2 hours during the day and only waking 1-2 times per night excellent progress LTG Duration 12 weeks Assessment Summary Assessment Dannielle notes decreased c/o pelvic pressure, she is working on her home program and is slowly making improvements with improved pelvic floor strength, thoracic mobility and trying to increase her fiber intake during the day. Bowel movement are a bit easier for he now however she will still go a few days between bowel movements. She notes she is not feeling the cramping and not as much of the pelvic pressure. She has a MD appt coming up to discuss surgery verses conservative management. She would like to continue PT as she feels she is slowly making progress Physical Therapy Plan Frequency and Duration Frequency of Treatment 1x/Week Duration of treatment (weeks) 12 Plan of Care Start Date 08/31/24 Plan of Care End Date 11/23/24 Therapeutic Interventions Therapeutic Interventions Home Exercise Program,Manual Therapy,Neuromuscular Re- education,Patient/Caregiver Education,Self-Care/Home Management,Soft Tissue Mobilization,Therapeutic Exercises Modalities Biofeedback Next Visit Focus/Plan Next Note Type Treatment Note Next Visit Plan continue working on endurance holds of the pelvic floor and encouraging thoracic mobility, manual release of the abdominal wall, suprapubic fascia and over the transverse and descending colon Plan of Care Dates Plan of Care Start Date 08/31/24 Plan of Care End Date 11/23/24 Electronically Signed by: Dory Obando, PT 09/02/24 [id number] If you are in agreement with this Plan of Care, please return a signed and dated copy. I have reviewed this Plan of Care and certify that the skilled therapy services above are required to meet the patient?s needs. Physician Signature Date Printed Name and Credentials Clinical Instructor Signature Printed Name and Credentials
--- NOTE | 2024-09-20 13:32 | PT.OTN ---
Current Diagnoses Cystocele, unspecified (09/19/24) Pelvic muscle wasting (09/19/24) Nocturia (09/19/24) Urgency of urination (09/19/24) Physical Therapy Treatment Note PT-OP-A Visit Information Start: 06/20/24 13:47 Freq: Status: Active Protocol: Document 09/19/24 11:30 [facility] (Rec: 09/19/24 17:05 [facility] [id number]) Out-Patient Physical Therapy Visit Information Visit Information Visit Type Treatment Note Visit Start Time 11:30 Visit Stop Time 12:15 Visit Number 9 PT-OP-B Current Condition Start: 06/20/24 13:47 Freq: Status: Active Protocol: Document 06/20/24 13:45 [facility] (Rec: 06/20/24 14:38 [facility] [id number]) Current Condition History of Current Condition Onset Date worsening in the past couple of years Current Complaints pelvic heaviness and pressure, urinary urgency History of Current Condition Dannielle is referred to PT due to pelvic organ prolapse and urinary urgency. She notes the last couple of years its gotten worse she has a history of cystocele, uterine prolapse, and rectocele. She feels that she can empty all the way but does have urgency and she drinks a lot of water. Dannielle reports she can go 3- 4 days without a bowel movement. She is taking progesterone , estrogen, and testosterone cream. She does cycle throught the testosterone cream. She is walking daily. She seeks PT to help decrease the pelvic organ prolapse and pelvic heaviness as well as decrease her urgency Treatment Goals Patient/Caregiver Goals Decrease urinary urgency and symptoms of pelvic organ prolapse PT-OP-C Subjective Start: 06/20/24 13:47 Freq: Status: Active Protocol: Document 09/19/24 11:30 [facility] (Rec: 09/20/24 13:31 [facility] [id number]) OP-PT Subjective Patient Comments Patient Comments Dannielle reprots she saw Dr. Mendosa and the plan is to hold off on any surgical correction as Dannielle is feeling as if this was caught in time and that she is doing better. She was shown a pelvic support brace on [employer] for pelvic pressure Patient Reported Progress Improving PT-OP-F Manual Assessment Start: 06/20/24 13:47 Freq: Status: Active Protocol: Document 06/20/24 13:45 [facility] (Rec: 06/29/24 10:23 [facility] [id number]) Manual Assessments Soft Tissue Assessment Soft Tissue Mobility Assessment fascial tightness across the transverse and descending colon in the abdominal wall, decreased diaphragmatic excursion tightness of the suprapubic fascia and over the bladder PT-OP-I Pelvic Floor Start: 06/20/24 13:47 Freq: Status: Active Protocol: Document 06/20/24 13:45 [facility] (Rec: 06/29/24 09:59 [facility] [id number]) Pelvic Floor Assessment Urine Pelvic Floor Surgery No Urinary Symptoms Urge Sensation,Prolapse Other Urinary Symptoms nocturia 3 times per night and 11-14 times per day Leakage Size Medium Other Leakage Causes leakage with strong cough or sneeze or with a strong urge to void Bowel Bowel Symptoms Constipation Other Bowel Symptoms history of constipation, at times up to 6 days without a bowel movement, often finds she needs to strain to have a bowel movement Comments Pelvic Floor Comments decreased endurance for sustained pelvic floor contractions, pt needs further assessment for pelvic floor strength PT-OP-Q Treatments Start: 06/20/24 13:47 Freq: Status: Active Protocol: Document 09/19/24 11:30 [facility] (Rec: 09/19/24 17:05 [facility] [id number]) Therapeutic Exercises Sitting Exercises seated ball exercises Sitting Exercise Name pelvic tilts, lateral tilts and hip circles PT-OP-T Assessment and Plan Start: 06/20/24 13:47 Freq: Status: Active Protocol: Document 09/19/24 11:30 [facility] (Rec: 09/20/24 13:31 [facility] [id number]) Physical Therapy Assessment Assessment Summary Assessment Overall Dannielle is improving. She is still very stiff and guarded in her trunk and pelvis and even with walking is stiff. I added in seated ball pelvic tilts, side tilts and hip circles to her HEP to encourage trunk mobility Physical Therapy Plan Frequency and Duration Frequency of Treatment 1x/Week Duration of treatment (weeks) 12 Plan of Care Start Date 08/31/24 Plan of Care End Date 11/23/24 Therapeutic Interventions Therapeutic Interventions Home Exercise Program,Manual Therapy,Neuromuscular Re- education,Patient/Caregiver Education,Self-Care/Home Management,Soft Tissue Mobilization,Therapeutic Exercises Modalities Biofeedback Next Visit Focus/Plan Next Note Type Treatment Note Next Visit Plan review ball exercises next visit and resume pelvic floor strengthening
--- NOTE | 2024-11-22 11:08 | PT.OPDS ---
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 Address: [address] [place] [address] [address], [place], [address] Email: [email or web address] Visit Number Visit Number 9 Discharge Summary PT-OP-B Current Condition Start: 06/20/24 13:47 Freq: Status: Active Protocol: Document 06/20/24 13:45 [facility] (Rec: 06/20/24 14:38 [facility] [id number]) Current Condition History of Current Condition Onset Date worsening in the past couple of years Current Complaints pelvic heaviness and pressure, urinary urgency History of Current Condition Dannielle is referred to PT due to pelvic organ prolapse and urinary urgency. She notes the last couple of years its gotten worse she has a history of cystocele, uterine prolapse, and rectocele. She feels that she can empty all the way but does have urgency and she drinks a lot of water. Dannielle reports she can go 3- 4 days without a bowel movement. She is taking progesterone , estrogen, and testosterone cream. She does cycle throught the testosterone cream. She is walking daily. She seeks PT to help decrease the pelvic organ prolapse and pelvic heaviness as well as decrease her urgency Treatment Goals Patient/Caregiver Goals Decrease urinary urgency and symptoms of pelvic organ prolapse PT-OP-C Subjective Start: 06/20/24 13:47 Freq: Status: Active Protocol: Document 09/19/24 11:30 [facility] (Rec: 09/20/24 13:31 [facility] [id number]) OP-PT Subjective Patient Comments Patient Comments Dannielle reprots she saw Dr. Mendosa and the plan is to hold off on any surgical correction as Dannielle is feeling as if this was caught in time and that she is doing better. She was shown a pelvic support brace on [employer] for pelvic pressure Patient Reported Progress Improving PT-OP-F Manual Assessment Start: 06/20/24 13:47 Freq: Status: Active Protocol: Document 06/20/24 13:45 [facility] (Rec: 06/29/24 10:23 [facility] [id number]) Manual Assessments Soft Tissue Assessment Soft Tissue Mobility Assessment fascial tightness across the transverse and descending colon in the abdominal wall, decreased diaphragmatic excursion tightness of the suprapubic fascia and over the bladder PT-OP-I Pelvic Floor Start: 06/20/24 13:47 Freq: Status: Active Protocol: Document 06/20/24 13:45 [facility] (Rec: 06/29/24 09:59 [facility] [id number]) Pelvic Floor Assessment Urine Pelvic Floor Surgery No Urinary Symptoms Urge Sensation,Prolapse Other Urinary Symptoms nocturia 3 times per night and 11-14 times per day Leakage Size Medium Other Leakage Causes leakage with strong cough or sneeze or with a strong urge to void Bowel Bowel Symptoms Constipation Other Bowel Symptoms history of constipation, at times up to 6 days without a bowel movement, often finds she needs to strain to have a bowel movement Comments Pelvic Floor Comments decreased endurance for sustained pelvic floor contractions, pt needs further assessment for pelvic floor strength PT-OP-T Assessment and Plan Start: 06/20/24 13:47 Freq: Status: Active Protocol: Document 11/22/24 11:07 [facility] (Rec: 11/22/24 11:08 [facility] [id number]) Physical Therapy Assessment Goals 3 Impairment Decreased endurance of the pelvic floor Short Term Goal (STG) dannielle is able to sustain a pelvic floor contraction in supine x 10 seconds good progress but not at 10 seconds yet STG Duration 4 weeks Senior Living Goal (LTG) Dannielle is able to sustain a pelvic floor contraction in standing x 5 seconds goal not yet met LTG Duration 12 weeks 2 Impairment Pelvic pressure and heaviness with pelvic organ prolapse Supervisor Electronic Coils Goal (LTG) Dannielle reports a overall reduction in pelvic heaviness and pressure good progress as Dannielle is not experiencing as much pressure LTG Duration 12 weeks 1 Impairment urinary urgency and frequency with pt voiding 11-14 times per day and up to 3 times per night Short Term Goal (STG) Dannielle is educated in improved bowel habits to help decrease urinary urgency, the urge deference technique and bladder retraining goal met STG Duration 4 weeks Senior Living Goal (LTG) Dannielle reports a overall reducation in urinary urgency and is able to extend her voids to every 2 hours during the day and only waking 1-2 times per night excellent progress LTG Duration 12 weeks Assessment Summary Assessment Dannielle has not been seen since September 19 and has cancelled her last 2 PT appts. She will be discharged at this time but I would be happy to work with her again in the future Physical Therapy Plan Discharge Physical Therapy Discharge Reasons No Longer Attending PT
== END 2024-11-23 15:03 | disposition home or self-care (01) ==
LOC: PHYS 11:30
PROVIDERS: Family Provider Internal Medicine; PCP Internal Medicine; Referring Provider Obstetrics & Gynecology; Visit Provider Obstetrics & Gynecology
DX: N81.10 Cystocele, unspecified (principal); R35.1 Nocturia; R39.15 Urgency of urination; N81.84 Pelvic muscle wasting
CPT/HCPCS: 97110; 97140; 97161; 97535

== ENCOUNTER 2024-11-07 09:38 | Day surgery (SDC) | payer BC, MEDICARE, SELFPAY ==
[2024-11-07 10:06] VITALS: BP 150/70; PULSE 86; RESP 13; TEMP 36.1; O2SAT 99
--- NOTE | 2024-11-07 10:24 | PM.HP.1 ---
History of Present Illness History of Present Illness Date Patient Seen: 11/07/24 Time Patient Seen: 10:25 Chief complaint: [facility] [place]ative: 69-year-old white female presents for screening colonoscopy. One previous colonoscopy no polyps. [facility] Medical History (Updated 11/07/24 @ 10:25 by Gabriel Lujan MD) Colon cancer screening (~11/07/24) History of endometrial biopsy (2010) Osteopenia (06/05/10) Depression PMB (postmenopausal bleeding) Migraines Seizure Subdural hematoma (05/27/17) Former smoker Surgical History History of craniotomy (2016) History of carpal tunnel repair (03/07/12) Social History household members: spouse Smoking Status: Former smoker alcohol intake: current Meds Home Medications and Allergies Home Medications Medication Instructions Recorded Confirmed Type VITAMIN B COMPLEX (SUPER B COMPLEX) 1 cap PO DAILY ##0 03/07/12 09/14/24 History biotin 5 mg tablet 5 mg PO DAILY 11/14/21 11/07/24 History loratadine 10 mg tablet (Claritin) 10 mg PO DAILY 11/14/21 09/14/24 History Prevagen 1 tab PO DAILY 02/18/24 09/14/24 History sertraline 50 mg tablet 50 mg PO DAILY #90 tabs 02/18/24 11/07/24 Rx CMP Testosterone gel 0.2% See Rx Instructions .Route 02/21/24 09/14/24 Rx .COMPLEX #30 grams estradiol 0.5 mg tablet 0.5 mg PO DAILY #90 tabs 03/23/24 11/07/24 Rx medroxyprogesterone 2.5 mg tablet 2.5 mg PO DAILY #90 tabs 03/23/24 09/14/24 Rx estradiol 0.01% (0.1 mg/gram) 0.5 g vaginal 2XW #42.5 grams 09/14/24 09/14/24 Rx vaginal cream (Estrace) sodium,potassium,mag sulfates 17.5 See Rx Instructions PO .COMPLEX 09/26/24 Rx gram-3.13 gram-1.6 gram oral soln #354 mL (Suprep Bowel Prep Kit) Allergies Allergy/AdvReac Type Severity Reaction Status Date / Time codeine Allergy Unknown Verified 11/07/24 10:00 fentanyl [FENTANYL] Allergy Unknown Hallucinati Verified 11/07/24 10:00 ons Review of Systems Review of Systems ROS: Yes All systems reviewed with the patient and are negative except as otherwise documented Exam Vital Signs (past 8 hours): - 11/07/24 10:06 Temperature 97.0 F L Pulse Rate 86 Respiratory Rate 13 Blood Pressure 150/70 H Pulse Oximetry 99 Oxygen Delivery Method Room Air Oxygen Delivery Method Room Air Narrative Exam Narrative: Gen: NAD, sitting comfortably in bed, appears well HEENT: Sclera are anicteric, head is normocephalic and atraumatic, trachea is midline. CV: RRR, no JVD Resp: clear to auscultation bilaterally, equal chest wall movement bilaterally Abd: soft, nontender, normoactive bowel sounds Ext: no edema, full range of motion Neuro: Cranial nerves II-XII grossly intact, no focal deficits Skin: No erythema or ecchymosis Assessment & Plan Assessment and plan (1) Colon cancer screening: Status: Acute Assessment & Plan narrative: Patient presents for colonoscopy Risks, benefits, alternatives to colonoscopy explained, including but not limited to bowel perforation or other serious complication requiring surgery at less than 1 in 5000 colonoscopies, abdominal pain, cramping or bleeding and less than 1% of colonoscopies, and the chances that we find a diagnosis that would require further intervention of about 2%. Patient agrees to proceed. Time-Based Coding :: [TOTAL MINUTES] spent with patient and on the chart (including review of chart, obtaining history, exam, reviewing outside data, placing orders, documenting exam and treatment plan, and counseling patient) on [DATE].
--- NOTE | 2024-11-07 10:46 | P.OP.COLON_ITS ---
Operative Date/Time/Diagnoses Date of procedure: 11/07/24 Time of procedure: 10:46 Pre-op diagnosis: Colon screening Post-op diagnosis: same Procedure & Clinicians Study performed: Colonoscopy Same procedure as scheduled: Yes Indications: Colon screening Surgeon: Gabriel Lujan Procedure Notes SCOAP/Timeout: Performed Procedure in detail: Time-out was performed. Mac was induced. Patient was placed in left lateral d ecubitus position. The perineum was inspected without any gross abnormality. Lubricated pediatric colonoscope was inserted and advanced to the cecum. The terminal ileum was intubated. The colonoscope was withdrawn slowly inspecting the circumference of the colon. Very small polyps may have been missed, prep quality was adequate. Retroflexed view of the rectum showed small, non prolapsed nonbleeding internal hemorrhoids. The scope was withdrawn the patient was taken to PACU in good condition. Scope withdrawal time: 6 Sedation minutes: 12 Findings: internal hemorrhoids Specimen(s): other Complications: none Impression: Normal colonoscopy Post-procedure Recommendations: Colonoscopy in 10 years Follow up: as needed Disposition: PACU
[2024-11-07 10:48] VITALS: BP 134/68; PULSE 69; RESP 11; TEMP 36.6; O2SAT 99
[2024-11-07 10:52] VITALS: BP 136/72; PULSE 70; RESP 17; O2SAT 99
[2024-11-07 10:57] VITALS: BP 141/69; PULSE 71; RESP 13; TEMP 36.1; O2SAT 99
== END 2024-11-07 11:14 | disposition home or self-care (01) ==
PROVIDERS: Family Provider Internal Medicine; PCP Internal Medicine; Referring Provider Surgery; Visit Provider Surgery
PROC: 0DJD8ZZ Inspection of Lower Intestinal Tract, Via Natural or Artificial Opening Endoscopic (ICD-10-PCS; CPT 45378; principal; 2024-11-07 10:45)
DX: Z12.11 Encounter for screening for malignant neoplasm of colon (principal); K64.8 Other hemorrhoids; Z87.891 Personal history of nicotine dependence
CPT/HCPCS: G0121

== ENCOUNTER → 2025-03-12 16:13 | Outpatient (CLI) | payer MEDICARE, BC, SELFPAY ==
[2025-03-12 16:56] LABS: Add Manual Diff / Slide Review NO; Basophils Absolute Auto 0 /uL (0-100); Basophils Percent Auto 0.2 % (0-2); Eosinophils Absolute Auto 0 /uL (0-450); Eosinophils Percent Auto 0.3 % (2-4); Hematocrit 40.5 % (36-46); Hemoglobin 13.6 g/dL (12.0-16.0); Lymphocytes Absolute Auto 1300 /uL (1100-4500); Mean Corpuscular HGB Conc 33.6 % (30-36); Mean Corpuscular Hemoglobin 33.4 PG (26-34); Mean Corpuscular Volume 99.2 fL (80-100); Monocytes Absolute Auto 400 /uL (0-900); Monocytes Percent Auto 4.9 % (3-14); Neutrophils Absolute Auto 5700 /uL (1500-7000); Neutrophils Percent Auto 77.6 % (50-75); Platelet Count 263 X10^3/uL (150-400); Red Blood Cell Count 4.08 X10^6/uL (4.0-5.2); Red Cell Distribution Width 12.9 % (11.6-14.8); White Blood Cell Count 7.4 X10^3/uL (4.5-11.0)
[2025-03-12 17:39] LABS: Alanine Aminotransferase 21 IU/L (<35); Albumin 4.8 g/dL (3.5-5.0); Albumin Globulin Ratio 1.8 (1.0-2.8); Alkaline Phosphatase 69 U/L (38-126); Aspartate Aminotransferase 30 IU/L (14-36); BUN Creatinine Ratio 28.1 (6-22); Bilirubin Total 0.8 mg/dL (0.2-1.3); Blood Urea Nitrogen 18 mg/dL (7-17); Calcium 10.1 mg/dL (8.4-10.2); Carbon Dioxide 27 mmol/L (22-32); Chloride 103 mmol/L (98-107); Estimated Glomerular Filt Rate > 60 mL/min (>60); Globulin 2.6 g/dL (1.7-4.1); Glucose 98 mg/dL (70-99); HEMOLYSIS < 15 (0-50); Potassium 4.6 mmol/L (3.4-5.1); Sodium 139 mmol/L (137-145); Total Protein 7.4 g/dL (6.3-8.2)
[2025-03-12 17:56] LABS: Free T4, Direct Thyroxine 0.99 ng/dL (0.78-2.19)
[2025-03-12 18:10] LABS: Thyroid Stimulating Hormone 1.39 uIU/mL (0.47-4.68)
== END ==
PROVIDERS: Family Provider Internal Medicine; PCP Internal Medicine; Referring Provider Internal Medicine; Visit Provider Internal Medicine
DX: I10 Essential (primary) hypertension (principal); D64.9 Anemia, unspecified; E03.9 Hypothyroidism, unspecified
CPT/HCPCS: 36415; 80053; 84439; 84443; 85025